=== PATIENT | male | born 1960 | race American Indian/Alaskan Native ===

== ENCOUNTER 2017-03-20 06:55 | Inpatient (IN) | payer MEDICARE ==
[2017-03-20] MEDS ORDERED: MORPHINE IV PRN (08:33)
--- NOTE | 2017-03-20 08:34 | Anesthesia Day of Surgery ---
Anesthesia Day of Surgery - Day of Surgery Patient Examined: Yes Patient H&P Reviewed: Yes Patient is NPO: Yes
--- NOTE | 2017-03-20 08:34 | Anesthesia Consultation ---
Anesthesia Consult and Med Hx Date of service: 03/20/17 - Airway Anesthetic Teeth Evaluation: Poor ROM Head & Neck: Adequate Mental/Hyoid Distance: Adequate Mallampati Class: Class II Intubation Access Assessment: Probably Good - Pulmonary Exam CTA: Yes - Cardiac Exam Cardiac Exam: RRR - Pre-Operative Health Status ASA Pre-Surgery Classification: ASA3 Proposed Anesthetic Plan: General - Pulmonary Hx Smoking: Yes (STOPPED 1999) Hx Asthma: (pt denies) Hx Respiratory Symptoms: (recent sore throat) SOB: Yes (SOB) Hx Sleep Apnea: Yes (DX SLEEP APNEA- IRREGULAR CPAP USE) - Cardiovascular System Hx Hypertension: Yes (X 10 YRS) - Central Nervous System Hx Back Pain: Yes (WITH LEG NUMBNESS/ PAIN) - Gastrointestinal Hx Gastroesophageal Reflux Disease: No - Endocrine Hx Insulin Dependent Diabetes: Yes - Other Systems Hx Alcohol Use: Yes (OCCAS WINE) Hx Substance Use: Yes (HX COCAINE/CRACK ABUSE-CLEAN SINCE 1987) Hx Cancer: No
[2017-03-20] MEDS ORDERED: PEPCID PO NR (09:00)
[2017-03-20] MEDS ORDERED: NEURONTIN PO NR (09:00)
[2017-03-20] MEDS ORDERED: NEO SYNEPHRINE/NS Syringe(OR USE) IV ONE (09:00)
[2017-03-20] MEDS ORDERED: NACL 0.9% 1000 ML 1,000 ML IV SCH (09:00)
[2017-03-20] MEDS ORDERED: VERSED IV NR (09:00)
[2017-03-20] MEDS ORDERED: D50W (25GM) Vial IV ONE (09:00)
[2017-03-20] MEDS ORDERED: MARCAINE 0.5% 30 ML INFILTRATI ONE (09:38)
[2017-03-20] MEDS ORDERED: ZEMURON IV ONE (09:41)
[2017-03-20] MEDS ORDERED: DIPRIVAN 10 MG/ML IV ONE (09:41)
[2017-03-20] MEDS ORDERED: DILAUDID ONE ×2 (09:41→11:56)
[2017-03-20] MEDS ORDERED: XYLOCAINE MPF 2% ONE (09:41)
[2017-03-20] MEDS ORDERED: ANCEF/STERILE WATER 2 GM/20 ML 2 GM/20 ML SYRINGE IV ONE (09:52)
[2017-03-20] MEDS ORDERED: ANCEF/STERILE WATER 2 GM/20 ML IV NR (10:00)
[2017-03-20] MEDS ORDERED: ePHEDrine SULFATE ONE (10:32)
[2017-03-20] MEDS ORDERED: NEOSTIGMINE ONE (10:42)
[2017-03-20] MEDS ORDERED: ZOFRAN ONE (10:42)
[2017-03-20] MEDS ORDERED: ROBINUL ONE (10:42)
[2017-03-20] MEDS ORDERED: DECADRON ONE (10:43)
[2017-03-20] MEDS ORDERED: NACL 0.9% 1000 ML 1,000 ML ONE (10:50)
[2017-03-20] MEDS ORDERED: MARCAINE 0.5% INFILTRATI ONE (11:07)
[2017-03-20] MEDS ORDERED: NACL 0.9% IR ONE (11:08)
[2017-03-20] MEDS: DILAUDID IV PRN ×4 (11:56→12:44)
--- NOTE | 2017-03-20 12:19 | Operative Report ---
PREOPERATIVE DIAGNOSIS: Ventral hernia. POSTOPERATIVE DIAGNOSIS: Ventral hernia. PROCEDURE: Exploratory laparotomy and ventral hernia repair with mesh. SURGEON: Mode Amin MD ANESTHESIA: General. ESTIMATED BLOOD LOSS: Minimal. No drains or complications. PROCEDURE IN DETAIL: The patient was taken to the operating room, prepped and draped in usual sterile fashion. The palpable ventral hernia had been previously outlined with a marking pencil. Incision was made down through the midline. Ventral hernia was confirmed as well as recurrent umbilical hernia. Omental adhesions were also noticed. Lysis of adhesions from the undersurface of the peritoneum was completed until the entire area was free of any adhesions. A Composix Parietex mesh was then placed in the abdomen covering the fascial defect. Tacks were used to tack the mesh to the peritoneal undersurface of the entire defect. The mesh was then carefully inspected and noted to be well placed with no evidence of any further defects noted. Midline was then closed over the mesh with #1 Nurolon in interrupted fashion. Fascia was then palpated and noted to be well closed. No other fascial defects or weaknesses noted. Area was irrigated copiously and dried. Checked for hemostasis and noted to be dry. The skin was then closed with rosemary. A 0.5% Marcaine was infiltrated over the area for postoperative pain relief. Fluffs and pressure dressings were applied. Abdominal binder will also be placed. The patient tolerated the procedure well and left OR in stable condition. JOB# [id number] FOZIA/YUMI
[2017-03-20] MEDS ORDERED: DILAUDID IV PRN (12:36)
[2017-03-20] MEDS: D5W/0.45% NACL/KCL 20 MEQ 20 MEQ/1,000 ML BAG IV SCH ×2 (16:00→21:42)
[2017-03-20] MEDS: ANCEF/NS 1 GM/50 ML 1 GM/50 ML BAG IV SCH (18:12)
[2017-03-20] MEDS: ZOFRAN IV PRN (18:24)
[2017-03-21] MEDS: ANCEF/NS 1 GM/50 ML 1 GM/50 ML BAG IV SCH (01:27)
[2017-03-21] MEDS: MORPHINE IV PRN (01:28)
[2017-03-21] MEDS: ZOFRAN IV PRN (01:28)
[2017-03-21 04:14] LABS: Basophils % (Auto) 0.2 % (0.0-1.8); Hemoglobin 18.3 gm/dl (11.8-15.2); Mean Corpuscular HGB Conc 32 % (32-34); Mean Corpuscular Hemoglobin 28 pg (28-32); Mean Corpuscular Volume 89 fl (84-94); Platelet Count 140 K/mm3 (140-440); Red Blood Count 6.53 M/mm3 (3.65-5.03); Red Cell Distribution Width 17.3 % (13.2-15.2); White Blood Count 9.1 K/mm3 (4.5-11.0)
[2017-03-21 04:24] LABS: Calcium 7.6 mg/dL (8.4-10.2)
[2017-03-21 05:55] LABS: Potassium 7.1 mmol/L (3.6-5.0)
[2017-03-21] MEDS ORDERED: CALCIUM CHLORIDE IV ONE (06:13)
[2017-03-21 07:39] LABS: Chloride 98.1 mmol/L (98-107)
[2017-03-21 07:43] LABS: Calcium 8.9 mg/dL (8.4-10.2)
[2017-03-21 07:46] LABS: Potassium 6.7 mmol/L (3.6-5.0)
[2017-03-21] MEDS: NOVOLOG SUB-Q SCH ×4 (08:22→22:26)
[2017-03-21] MEDS ORDERED: NACL 0.45% 1000 ML 1,000 ML IV SCH (09:00)
--- NOTE | 2017-03-21 10:19 | History and Physical Report ---
History of Present Illness Date of examination: 03/21/17 Date of admission: 03/20/17 11:12 Medications and Allergies Allergies Allergy/AdvReac Type Severity Reaction Status Date / Time No Known Allergies Allergy Verified 03/16/17 14:25 Home Medications Medication Instructions Recorded Confirmed Last Taken Type Aspirin [Aspirin BABY CHEW TAB] 81 mg PO QDAY 09/09/14 11/16/16 09/04/14 History Atorvastatin [Lipitor] 40 mg PO QHS 09/09/14 11/16/16 09/11/14 19:00 History Canagliflozin (Nf) [Invokana] 100 mg PO DAILY 09/09/14 11/16/16 09/10/14 09:00 History Esomeprazole Magnesium [NexIUM] 40 mg PO QDAY 09/09/14 11/16/16 Unknown History Fluticasone [Flonase] 1 spray NS PRN PRN 09/09/14 11/16/16 Unknown History Hydrochlorothiazide [Hctz] 25 mg PO QDAY 09/09/14 11/16/16 09/11/14 09:00 History Insulin Glargine,Hum.rec.anlog 40 unit SQ BID 09/09/14 11/16/16 09/11/14 16:00 History [Lantus Solostar] Insulin Lispro [HumaLOG] 20 unit SQ TID 09/09/14 11/16/16 Unknown History Lisinopril [Zestril] 40 mg PO QDAY 09/09/14 11/16/16 09/12/14 04:30 History Mometasone Furoate [Nasonex] 2 spray NS PRN PRN 09/09/14 11/16/16 Unknown History Montelukast [Singulair] 10 mg PO PRN PRN 09/09/14 11/16/16 Unknown History Polyethylene Glycol 3350 [Miralax 17 gm PO DAILY 09/09/14 11/16/16 Unknown History 3350] Pregabalin [Lyrica] 225 mg PO BID 09/09/14 11/16/16 09/11/14 19:00 History Vardenafil HCl [Levitra] 20 mg PO QDAY PRN 09/09/14 11/16/16 Unknown History Zolpidem [Ambien] 5 mg PO QHS PRN 09/09/14 11/16/16 Unknown History HYDROcodone/APAP 5-325 [[place] 1 - 2 each PO Q4HR PRN #30 tablet 09/12/14 Unknown Rx 5/325] Active Meds: Active Medications Hydromorphone HCl (Dilaudid) 0.25 mg IV Q3H PRN PRN Reason: Pain , Severe (7-10) Last Admin: 03/20/17 19:09 Dose: 0.25 mg Sodium Chloride (Nacl 0.45% 1000 Ml) 1,000 mls @ 125 mls/hr IV DIRECT BETHANY Last Admin: 03/21/17 09:39 Dose: 125 mls/hr Insulin Aspart (Novolog) 0 units SUB-Q ACHS BETHANY PRN Reason: Protocol Morphine Sulfate (Morphine) 4 mg IV Q3H PRN PRN Reason: Pain , Severe (7-10) Last Admin: 03/21/17 01:28 Dose: 4 mg Ondansetron HCl (Zofran) 4 mg IV Q4H PRN PRN Reason: N/V unrelieved by Christine Last Admin: 03/21/17 01:28 Dose: 4 mg Exam - Constitutional Vitals: Temp Pulse Resp BP Pulse Ox 99.2 F 103 H 93 H 120/82 97 03/21/17 08:00 03/21/17 08:00 03/21/17 08:00 03/21/17 08:00 03/21/17 04:30 Results - Labs CBC & Chem 7: 03/21/17 03:34 03/21/17 07:07 Labs: Laboratory Last Values WBC 9.1 K/mm3 (4.5-11.0) 03/21/17 03:34 RBC 6.53 M/mm3 (3.65-5.03) H 03/21/17 03:34 Hgb 18.3 gm/dl (11.8-15.2) H 03/21/17 03:34 Hct 58.0 % (35.5-45.6) H 03/21/17 03:34 MCV 89 fl (84-94) 03/21/17 03:34 MCH 28 pg (28-32) 03/21/17 03:34 MCHC 32 % (32-34) 03/21/17 03:34 RDW 17.3 % (13.2-15.2) H 03/21/17 03:34 Plt Count 140 K/mm3 (140-440) 03/21/17 03:34 Lymph % (Auto) 5.8 % (13.4-35.0) L 03/21/17 03:34 Tucker % (Auto) 11.1 % (0.0-7.3) H 03/21/17 03:34 Eos % (Auto) 0.0 % (0.0-4.3) 03/21/17 03:34 Baso % (Auto) 0.2 % (0.0-1.8) 03/21/17 03:34 Lymph # 0.5 K/mm3 (1.2-5.4) L 03/21/17 03:34 Tucker # 1.0 K/mm3 (0.0-0.8) H 03/21/17 03:34 Eos # 0.0 K/mm3 (0.0-0.4) 03/21/17 03:34 Baso # 0.0 K/mm3 (0.0-0.1) 03/21/17 03:34 Seg Neutrophils % 82.9 % (40.0-70.0) H 03/21/17 03:34 Seg Neutrophils # 7.5 K/mm3 (1.8-7.7) 03/21/17 03:34 Sodium 135 mmol/L (137-145) L 03/21/17 07:07 Potassium 6.7 mmol/L (3.6-5.0) H* 03/21/17 07:07 Chloride 98.1 mmol/L (98-107) 03/21/17 07:07 Carbon Dioxide 22 mmol/L (22-30) 03/21/17 07:07 Anion Gap 22 mmol/L 03/21/17 07:07 BUN 53 mg/dL (9-20) H 03/21/17 07:07 Creatinine 3.1 mg/dL (0.8-1.5) H 03/21/17 07:07 Estimated GFR 25 ml/min 03/21/17 07:07 BUN/Creatinine Ratio 17 % 03/21/17 07:07 Glucose 378 mg/dL (75-100) H 03/21/17 07:07 POC Glucose 328 (70-105) H 03/21/17 06:28 Calcium 8.9 mg/dL (8.4-10.2) D 03/21/17 07:07
[2017-03-21] MEDS ORDERED: D50W (25GM) Syringe IV PRN (10:20)
--- NOTE | 2017-03-21 10:28 | Consultation ---
<GLEN WAGNERANDREY - Last Filed: 03/21/17 11:26> History of Present Illness - Reason for Consult Consult date: 03/21/17 acute on chronic renal failure and diabetes mellitus Requesting physician: JOSUE AMIN - History of Present Illness Patient is a 56 years old male with past medical history of hypertension, diabetes mellitus, chronic renal failure, hyperlipidemia , who was consulted form general surgery to us for medical management of hypertension and diabetes mellitus. Patient has had hernia repair; this procedure occurred on 03/20/2017. Patient tolerated the procedure well and postoperatively, she is stable. Patient denies fever, chills chest pain, headache. Patient rates surgical area pain and rates her pain 4/10 at present time. Past History Past Medical History: diabetes, hypertension, hyperlipidemia, other (chronic renal failure) Past Surgical History: Other (hernia repair) Social history: denies: smoking, alcohol abuse Family history: diabetes, hypertension Medications and Allergies Allergies Allergy/AdvReac Type Severity Reaction Status Date / Time No Known Allergies Allergy Verified 03/16/17 14:25 Home Medications Medication Instructions Recorded Confirmed Last Taken Type Aspirin [Aspirin BABY CHEW TAB] 81 mg PO QDAY 09/09/14 03/21/17 09/04/14 History Atorvastatin [Lipitor] 40 mg PO QHS 09/09/14 03/21/17 09/11/14 19:00 History Canagliflozin (Nf) [Invokana] 100 mg PO DAILY 09/09/14 03/21/17 09/10/14 09:00 History Esomeprazole Magnesium [NexIUM] 40 mg PO QDAY 09/09/14 03/21/17 Unknown History Fluticasone [Flonase] 1 spray NS PRN PRN 09/09/14 03/21/17 Unknown History Hydrochlorothiazide [Hctz] 25 mg PO QDAY 09/09/14 03/21/17 09/11/14 09:00 History Insulin Glargine,Hum.rec.anlog 40 unit SQ BID 09/09/14 03/21/17 09/11/14 16:00 History [Lantus Solostar] Insulin Lispro [HumaLOG] 20 unit SQ TID PRN 09/09/14 03/21/17 Unknown History Lisinopril [Zestril] 40 mg PO QDAY 09/09/14 03/21/1709/12/15 04:30 History Mometasone Furoate [Nasonex] 2 spray NS PRN PRN 09/09/14 03/21/17 Unknown History Montelukast [Singulair] 10 mg PO PRN PRN 09/09/14 03/21/17 Unknown History Polyethylene Glycol 3350 [Miralax 17 gm PO DAILY PRN 09/09/14 03/21/17 Unknown History 3350] Pregabalin [Lyrica] 225 mg PO BID 09/09/14 03/21/17 09/11/14 19:00 History Vardenafil HCl [Levitra] 20 mg PO QDAY PRN 09/09/14 03/21/17 Unknown History Zolpidem [Ambien] 5 mg PO QHS PRN 09/09/14 03/21/17 Unknown History HYDROcodone/APAP 5-325 [[place] 1 - 2 each PO Q4HR PRN #30 tablet 09/12/14 Unknown Rx 5/325] Active Meds: Active Medications Dextrose (D50w (25gm) Syringe) 50 ml IV PRN PRN PRN Reason: Hypoglycemia Hydromorphone HCl (Dilaudid) 0.25 mg IV Q3H PRN PRN Reason: Pain , Severe (7-10) Last Admin: 03/20/17 19:09 Dose: 0.25 mg Sodium Chloride (Nacl 0.45% 1000 Ml) 1,000 mls @ 125 mls/hr IV DIRECT BETHANY Last Admin: 03/21/17 09:39 Dose: 125 mls/hr Calcium Gluconate 1,000 mg/ (Sodium Chloride) 110 mls @ 660 mls/hr IV ONCE STA Stop: 03/21/17 10:34 Insulin Aspart (Novolog) 0 units SUB-Q ACHS BETHANY PRN Reason: Protocol Last Admin: 03/21/17 08:22 Dose: Not Given Insulin Human Regular (Novolin R) 10 units IV ONCE ONE Stop: 03/21/17 10:31 Morphine Sulfate (Morphine) 4 mg IV Q3H PRN PRN Reason: Pain , Severe (7-10) Last Admin: 03/21/17 01:28 Dose: 4 mg Ondansetron HCl (Zofran) 4 mg IV Q4H PRN PRN Reason: N/V unrelieved by Reglan Last Admin: 03/21/17 01:28 Dose: 4 mg Review of Systems Constitutional: no weight loss, no weight gain, no sweats Ears, nose, mouth and throat: no decreased hearing, no nose pain, no nasal congestion Cardiovascular: no palpitations, no rapid/irregular heart beat, no edema, no syncope Respiratory: no excessive sputum, no hemoptysis, no shortness of breath Gastrointestinal: no vomiting, no diarrhea, no constipation Genitourinary Male: no discharge, no urinary frequency, no urinary hesitancy Rectal: no incontinence, no bleeding Musculoskeletal: no shooting arm pain, no arm numbness/tingling, no low back pain Integumentary: no wounds, no jaundice, no boils Neurological: no weakness, no parathesias, no numbness, no tingling, no syncope Psychiatric: no hypersomnia, no change in appetite, no change in libido Endocrine: no polyuria, no nocturia, no excessive sweating Hematologic/Lymphatic: no easy bruising, no easy bleeding Allergic/Immunologic: no urticaria, no allergic rhinitis Exam - Constitutional Vitals: Temp Pulse Resp BP Pulse Ox 99.2 F 103 H 93 H 120/82 97 03/21/17 08:00 03/21/17 08:00 03/21/17 08:00 03/21/17 08:00 03/21/17 04:30 General appearance: Present: no acute distress - EENT Eyes: Present: PERRL ENT: hearing intact - Neck Neck: Present: supple - Respiratory Respiratory effort: normal Respiratory: bilateral: CTA - Cardiovascular Rhythm: regular Heart Sounds: Present: S1 & S2 - Abdominal General gastrointestinal: Present: soft, hernia, other (Abd surgery with guaze dressing ) Male genitourinary: Present: deferred - Rectal Rectal Exam: deferred - Integumentary Integumentary: Present: clear, warm, dry - Musculoskeletal Musculoskeletal: strength equal bilaterally - Psychiatric Psychiatric: appropriate mood/affect - Neurologic Neurologic: moves all extremities - Allied Health Allied health notes reviewed: nursing Results - Labs CBC & Chem 7: 03/21/17 03:34 03/21/17 07:07 Labs: Abnormal lab results 03/20/17 03/20/17 03/21/17 Range/Units 11:48 23:51 03:34 RBC 6.53 H (3.65-5.03) M/mm3 Hgb 18.3 H (11.8-15.2) gm/dl Hct 58.0 H (35.5-45.6) % RDW 17.3 H (13.2-15.2) % Lymph % (Auto) 5.8 L (13.4-35.0) % [place] % (Auto) 11.1 H (0.0-7.3) % Lymph # 0.5 L (1.2-5.4) K/mm3 [place] # 1.0 H (0.0-0.8) K/mm3 Seg Neutrophils % 82.9 H (40.0-70.0) % Sodium (137-145) mmol/L Potassium (3.6-5.0) mmol/L Chloride (98-107) mmol/L Carbon Dioxide (22-30) mmol/L BUN (9-20) mg/dL Creatinine (0.8-1.5) mg/dL Glucose (75-100) mg/dL POC Glucose 117 H 320 H (70-105) Calcium (8.4-10.2) mg/dL 03/21/17 03/21/17 03/21/17 Range/Units 03:34 06:28 07:07 RBC (3.65-5.03) M/mm3 Hgb (11.8-15.2) gm/dl Hct (35.5-45.6) % RDW (13.2-15.2) % Lymph % (Auto) (13.4-35.0) % [place] % (Auto) (0.0-7.3) % Lymph # (1.2-5.4) K/mm3 [place] # (0.0-0.8) K/mm3 Seg Neutrophils % (40.0-70.0) % Sodium 130 L 135 L (137-145) mmol/L Potassium 7.1 H* 6.7 H* (3.6-5.0) mmol/L Chloride 96.0 L (98-107) mmol/L Carbon Dioxide 19 L (22-30) mmol/L BUN 49 H 53 H (9-20) mg/dL Creatinine 3.0 H 3.1 H (0.8-1.5) mg/dL Glucose 422 H 378 H (75-100) mg/dL POC Glucose 328 H (70-105) Calcium 7.6 L (8.4-10.2) mg/dL Assessment and Plan Patient is a 56 years old male with past medical history of hypertension, diabetes mellitus, chronic renal failure, hyperlipidemia , who was consulted form general surgery to us for medical management of hypertension and diabetes mellitus. Patient has had hernia repair; this procedure occurred on 03/20/2017. Patient tolerated the procedure well and postoperatively, she is stable. Patient denies fever, chills chest pain, headache. Patient rates surgical area pain and rates her pain 4/10 at present time. Acute on chronic renal failure IV fluid hydration Renal US Nephrology consulted Hyperkalemia Secondary to renal failure Transfer to Telemetry Hyperkalemia cocktail given Repeat BMP Nephrology consulted Closely monitor electrolytes Hypertensive urgency Continue home antihypertensive medications Closely monitor blood pressure Diabetes mellitus Accu-Chek before meals and after Sliding-scale insulin/NovoLog ADA consistent carbohydrate/cardiac diet Hypertension Continue on home antihypertensive medication IV hydralazine for SBP >160 Closely monitor blood pressure S/P Left hernia repair Managed by hourly manager Hyponatermia Started IV fluid hydration Closely monitor electrolytes DVT prophylaxis Heparin <CHANA LOAIZA - Last Filed: 03/23/17 09:03> Medications and Allergies Active Meds: Active Medications Acetaminophen (Tylenol) 650 mg PO Q4H PRN PRN Reason: Pain, Mild (1-3) Last Admin: 03/21/17 22:27 Dose: 650 mg Atorvastatin Calcium (Lipitor) 40 mg PO QHS [facility] Last Admin: 03/22/17 21:15 Dose: 40 mg Dextrose (D50w (25gm) Vial) 25 gm IV PRN PRN PRN Reason: Hypoglycemia Fluticasone Propionate (Flonase) 100 mcg NS QDAY PRN PRN Reason: Allergy Symptoms Hydrochlorothiazide (Hctz) 25 mg PO QDAY [facility] Last Admin: 03/22/17 11:20 Dose: 25 mg Hydromorphone HCl (Dilaudid) 0.25 mg IV Q3H PRN PRN Reason: Pain , Severe (7-10) Last Admin: 03/20/17 19:09 Dose: 0.25 mg Sodium Chloride (Nacl 0.9% 1000 Ml) 1,000 mls @ 125 mls/hr IV DIRECT [facility] Last Admin: 03/23/17 03:10 Dose: 125 mls/hr Insulin Aspart (Novolog) 0 units SUB-Q ACHS [facility] PRN Reason: Protocol Last Admin: 03/22/17 21:16 Dose: Not Given Insulin Detemir (Levemir) 40 units SUB-Q BID [facility] Last Admin: 03/22/17 21:16 Dose: Not Given Morphine Sulfate (Morphine) 4 mg IV Q3H PRN PRN Reason: Pain , Severe (7-10) Ondansetron HCl (Zofran) 4 mg IV Q4H PRN PRN Reason: N/V unrelieved by Christine Last Admin: 03/22/17 05:29 Dose: 4 mg Pantoprazole Sodium (Protonix) 40 mg PO DAILY [facility] Last Admin: 03/22/17 11:20 Dose: 40 mg Pregabalin (Lyrica) 225 mg PO BID [facility] Last Admin: 03/22/17 21:15 Dose: 225 mg Zolpidem Tartrate (Ambien) 5 mg PO QHS PRN PRN Reason: Sleep Exam - Constitutional Vitals: Temp Pulse Resp BP Pulse Ox 99.1 F 110 H 20 111/81 93 03/23/17 00:03 03/23/17 00:03 03/23/17 00:03 03/23/17 00:03 03/23/17 00:03 Results - Labs CBC & Chem 7: 03/23/17 06:28 03/23/17 06:28 Labs: Abnormal lab results 03/21/17 03/22/17 03/22/17 Range/Units 13:59 09:47 09:47 RBC 6.29 H (3.65-5.03) M/mm3 Hgb 17.4 H (11.8-15.2) gm/dl Hct 55.8 H (35.5-45.6) % MCHC 31 L (32-34) % RDW 17.1 H (13.2-15.2) % Plt Count 132 L (140-440) K/mm3 Sodium (137-145) mmol/L Potassium 6.4 H* D (3.6-5.0) mmol/L Chloride (98-107) mmol/L BUN 43 H (9-20) mg/dL Creatinine 1.7 H (0.8-1.5) mg/dL Glucose 184 H (75-100) mg/dL POC Glucose 247 H (70-105) 03/22/17 03/22/17 03/22/17 Range/Units 11:09 15:50 18:00 RBC (3.65-5.03) M/mm3 Hgb (11.8-15.2) gm/dl Hct (35.5-45.6) % MCHC (32-34) % RDW (13.2-15.2) % Plt Count (140-440) K/mm3 Sodium 146 H (137-145) mmol/L Potassium 5.2 H (3.6-5.0) mmol/L Chloride 107.6 H (98-107) mmol/L BUN 43 H (9-20) mg/dL Creatinine 1.9 H (0.8-1.5) mg/dL Glucose 143 H (75-100) mg/dL POC Glucose 175 H 108 H (70-105) 03/23/17 03/23/17 Range/Units 06:28 06:28 RBC 6.20 H (3.65-5.03) M/mm3 Hgb 17.7 H (11.8-15.2) gm/dl Hct 54.8 H (35.5-45.6) % MCHC (32-34) % RDW 17.2 H (13.2-15.2) % Plt Count 127 L (140-440) K/mm3 Sodium 146 H (137-145) mmol/L Potassium (3.6-5.0) mmol/L Chloride (98-107) mmol/L BUN 37 H (9-20) mg/dL Creatinine 1.6 H (0.8-1.5) mg/dL Glucose 118 H (75-100) mg/dL POC Glucose (70-105) Assessment and Plan I saw and evaluated the patient. I agree with the findings and the plan of care as documented in the Nurse Practitioner's~note, with the following corrections and additions. Patient post hernia repair surgery. Has acute on CKD, severe hyperkalemia. Give Insulin, 5% Dextrose, kayexalate rectally, Calcium Gluconate, Albuterol neb. Transfer to telemetry I discussed with Dr. Amin, Surgeon and Dr. Ruff, Nephrology.
[2017-03-21] MEDS ORDERED: AMBIEN PO PRN (10:45)
[2017-03-21] MEDS ORDERED: FLONASE NS PRN (10:45)
[2017-03-21] MEDS ORDERED: MIRALAX 3350 PO PRN (10:45)
[2017-03-21] MEDS ORDERED: INSULIN LISPRO 20 UNIT SQ PRN (10:45)
[2017-03-21] MEDS ORDERED: SINGULAIR PO PRN (10:45)
[2017-03-21] MEDS ORDERED: VARDENAFIL HCL 20 MG PO PRN (10:45)
[2017-03-21] MEDS ORDERED: NON-FORMULARY (Mometasone Furoate [Nasonex] 2 SPRAY) NS PRN (10:45)
[2017-03-21] MEDS ORDERED: CALCIUM GLUCONATE 1,000 MG in NACL 0.9% 100 ML IV ONE (11:00)
[2017-03-21] MEDS ORDERED: LASIX IV ONE (11:30)
[2017-03-21] MEDS ORDERED: KIONEX PR NR ×2 (11:30→15:00)
[2017-03-21] MEDS ORDERED: PROVENTIL IH ONE (11:30)
[2017-03-21] MEDS ORDERED: NACL 0.9% 1000 ML 1,000 ML IV SCH (12:00)
--- NOTE | 2017-03-21 13:08 | Consultation ---
History of Present Illness - Reason for Consult Consult date: 03/21/17 acute renal failure, chronic renal failure, hyperkalemia - History of Present Illness Mr Hough is a 56 y/o M with a PMH of DM, HTN, HLD, CKD from DM/HTN who has been admitted to the [facility] for hernia repair which was done yesterday 03/20/17. Pt says he has seen a calender inspector in the past >1 year ago but has not seen recently as he currently lives far away from the clinic. He denies SHOB, CP, N/V , belly pain, diarrhea. Pt in Nov had a Cr of 1.7. Pt was getting D5 1/ 2 NS with 20 meq of KCL yesterday at 125 mls/hr. He had labs checked this am and his K was found to be 7.1. He has been on lisinopril inpatient. His repeat K was 6.7. Pt is making urine. ROS: As in HPI otherwise 12 point review of systems -ve Past History Past Medical History: diabetes, hypertension, hyperlipidemia, other (chronic renal failure) Past Surgical History: Other (hernia repair) Social history: denies: smoking, alcohol abuse Family history: diabetes, hypertension Medications and Allergies Allergies Allergy/AdvReac Type Severity Reaction Status Date / Time No Known Allergies Allergy Verified 03/16/17 14:25 Home Medications Medication Instructions Recorded Confirmed Last Taken Type Aspirin [Aspirin BABY CHEW TAB] 81 mg PO QDAY 09/09/14 03/21/17 09/04/14 History Atorvastatin [Lipitor] 40 mg PO QHS 09/09/14 03/21/17 09/11/14 19:00 History Canagliflozin (Nf) [Invokana] 100 mg PO DAILY 09/09/14 03/21/17 09/10/14 09:00 History Esomeprazole Magnesium [NexIUM] 40 mg PO QDAY 09/09/14 03/21/17 Unknown History Fluticasone [Flonase] 1 spray NS PRN PRN 09/09/14 03/21/17 Unknown History Hydrochlorothiazide [Hctz] 25 mg PO QDAY 09/09/14 03/21/17 09/11/14 09:00 History Insulin Glargine,Hum.rec.anlog 40 unit SQ BID 09/09/14 03/21/17 09/11/14 16:00 History [Lantus Solostar] Insulin Lispro [HumaLOG] 20 unit SQ TID PRN 09/09/14 03/21/17 Unknown History Lisinopril [Zestril] 40 mg PO QDAY 09/09/14 03/21/17 09/12/14 04:30 History Mometasone Furoate [Nasonex] 2 spray NS PRN PRN 09/09/14 03/21/17 Unknown History Montelukast [Singulair] 10 mg PO PRN PRN 09/09/14 03/21/17 Unknown History Polyethylene Glycol 3350 [Miralax 17 gm PO DAILY PRN 09/09/14 03/21/17 Unknown History 3350] Pregabalin [Lyrica] 225 mg PO BID 09/09/14 03/21/17 09/11/14 19:00 History Vardenafil HCl [Levitra] 20 mg PO QDAY PRN 09/09/14 03/21/17 Unknown History Zolpidem [Ambien] 5 mg PO QHS PRN 09/09/14 03/21/17 Unknown History HYDROcodone/APAP 5-325 [[place] 1 - 2 each PO Q4HR PRN #30 tablet 09/12/14 Unknown Rx 5/325] Active Meds: Active Medications Atorvastatin Calcium (Lipitor) 40 mg PO QHS BETHANY Dextrose (D50w (25gm) Vial) 25 gm IV PRN PRN PRN Reason: Hypoglycemia Fluticasone Propionate (Flonase) 100 mcg NS QDAY PRN PRN Reason: Allergy Symptoms Hydrochlorothiazide (Hctz) 25 mg PO QDAY BETHANY Hydromorphone HCl (Dilaudid) 0.25 mg IV Q3H PRN PRN Reason: Pain , Severe (7-10) Last Admin: 03/20/17 19:09 Dose: 0.25 mg Sodium Chloride (Nacl 0.45% 1000 Ml) 1,000 mls @ 125 mls/hr IV DIRECT BETHANY Last Admin: 03/21/17 09:39 Dose: 125 mls/hr Sodium Chloride (Nacl 0.9% 1000 Ml) 1,000 mls @ 75 mls/hr IV DIRECT BETHANY Insulin Aspart (Novolog) 0 units SUB-Q ACHS BETHANY PRN Reason: Protocol Last Admin: 03/21/17 11:41 Dose: Not Given Insulin Detemir (Levemir) 40 units SUB-Q BID BETHANY Miscellaneous Medication (Vardenafil Hcl [Levitra]) 20 mg PO QDAY PRN PRN Reason: Erectile Dysfunction Montelukast Sodium (Singulair) 10 mg PO QDAY PRN PRN Reason: Allergy Symptoms Morphine Sulfate (Morphine) 4 mg IV Q3H PRN PRN Reason: Pain , Severe (7-10) Last Admin: 03/21/17 01:28 Dose: 4 mg Ondansetron HCl (Zofran) 4 mg IV Q4H PRN PRN Reason: N/V unrelieved by Reglan Last Admin: 03/21/17 01:28 Dose: 4 mg Pantoprazole Sodium (Protonix) 40 mg PO DAILY BETHANY Polyethylene Glycol (Miralax 3350) 17 gm PO DAILY PRN PRN Reason: Bowel Movement Pregabalin (Lyrica) 225 mg PO BID BETHANY Sodium Polystyrene Sulfonate (Kionex) 60 gm MD ONCE NR Stop: 03/21/17 13:30 Zolpidem Tartrate (Ambien) 5 mg PO QHS PRN PRN Reason: Sleep Exam - Vital Signs Vital signs: Vital Signs Temp Pulse Resp BP Pulse Ox 98.0 F 85 18 115/74 95 03/20/17 08:39 03/20/17 08:39 03/20/17 08:39 03/20/17 08:39 03/20/17 08:39 - Physical Exam Narrative exam: GE: AAOX3 HEENT: PERRLA Neck: Supple Chest: CTAB CVS: RRR Abd: BS+ Ext: No cce Psyche: Appropriate mood Results - Lab Results 03/21/17 03:34 03/21/17 07:07 Most recent lab results Calcium 8.9 mg/dL (8.4-10.2) D 03/21/17 07:07 Assessment and Plan Hyperkalemia: -IVFs with K stopped. Currently on 1/2 NS. -Albuterol, Insulin, D50, Ca gluconate, lasix, kayxelate ordered. Will recheck K. -Low K diet when able to eat -Hold lisinopril for now Acute Renal failure possible due to ATN/pre renal vs CKD progression: Chronic kidney disease stage 3-4: -No recent BL Cr available, last Cr in Nov 2016 was 1.7. Could have ARF vs CKD progression -Likely has CKD from DM/HTN -Hold lisinopril for now -Change 1/2 NS to NS at 125 mls/hr since also has low Na -Renally dose all meds and avoid nephrotoxic meds -Check Urine studies, Renal US s/p Hernia repair: -GS on board, per them Diabetes mellitus type 2 on insulin: -On ISS -Per primary Essential Hypertension: -Avoid Gene ing/ARB for now -Titrate home med to keep SBP <130 Hyperlipidemia, chronic: -Statin -Target LDL <70 Plan d/w bedside RN. Pt says he would like to f/u with [facility] on discharge since it is closer to his home. With this note, i want to thank Dr Holm and Dr Amin for allowing me to participate in the care of Mr Graf. I will continue to follow him quite closely with you. Thank you for the consult. Stanislav Ruff MD Nephrology, Hypertension, Dialysis, Transplantation Phone no: [phone]
--- NOTE | 2017-03-21 13:21 | XRay Report ---
AP CHEST :03/21/17 CLINICAL: Volume overload. COMPARISON:None. FINDINGS: Cardiomegaly with a left ventricular contour. Central vascular congestion. A band of left lower lobe subsegmental atelectasis an additional streaky opacities in the left lower lobe. No pleural effusion. The bones and soft tissues are normal. IMPRESSION: Mild CHF and no pulmonary edema. Left lower lobe atelectasis versus airspace disease.
--- NOTE | 2017-03-21 13:52 | Progress Note ---
Assessment and Plan Pt status quo. feeling well. neg flatus Abd soft. neg BS ileus elevated K and BS surgically stable Rx above ambulate as terri probable cl liq in am Selected Entries 03/21/17 03/21/17 08:00 11:30 Temperature 99.2 F Pulse Rate 95 H Blood Pressure 144/94 [Right] Laboratory Tests 03/21/17 03/21/17 03:34 03:34 WBC 9.1 Hgb 18.3 H Hct 58.0 H Potassium 7.1 H* Laboratory Tests 03/21/17 03/21/17 03:34 06:28 Sodium 130 L POC Glucose 328 H Objective Vital Signs - 12hr 03/21/17 03/21/17 03/21/17 04:30 08:00 11:30 Temperature 98.7 F 99.2 F Pulse Rate 97 H 103 H 95 H Respiratory 20 93 H 20 Rate Blood Pressure 103/66 120/82 144/94 [Right] O2 Sat by Pulse 97 94 Oximetry - Labs 03/21/17 03:34 03/21/17 07:07 Diabetes panel 03/21/17 03/21/17 Range/Units 03:34 07:07 Sodium 130 L 135 L (137-145) mmol/L Potassium 7.1 H* 6.7 H* (3.6-5.0) mmol/L Chloride 96.0 L 98.1 (98-107) mmol/L Carbon Dioxide 19 L 22 (22-30) mmol/L BUN 49 H 53 H (9-20) mg/dL Creatinine 3.0 H 3.1 H (0.8-1.5) mg/dL Glucose 422 H 378 H (75-100) mg/dL Calcium 7.6 L 8.9 D (8.4-10.2) mg/dL Calcium panel 03/21/17 03/21/17 Range/Units 03:34 07:07 Calcium 7.6 L 8.9 D (8.4-10.2) mg/dL Pituitary panel 03/21/17 03/21/17 Range/Units 03:34 07:07 Sodium 130 L 135 L (137-145) mmol/L Potassium 7.1 H* 6.7 H* (3.6-5.0) mmol/L Chloride 96.0 L 98.1 (98-107) mmol/L Carbon Dioxide 19 L 22 (22-30) mmol/L BUN 49 H 53 H (9-20) mg/dL Creatinine 3.0 H 3.1 H (0.8-1.5) mg/dL Glucose 422 H 378 H (75-100) mg/dL Calcium 7.6 L 8.9 D (8.4-10.2) mg/dL Adrenal panel 03/21/17 03/21/17 Range/Units 03:34 07:07 Sodium 130 L 135 L (137-145) mmol/L Potassium 7.1 H* 6.7 H* (3.6-5.0) mmol/L Chloride 96.0 L 98.1 (98-107) mmol/L Carbon Dioxide 19 L 22 (22-30) mmol/L BUN 49 H 53 H (9-20) mg/dL Creatinine 3.0 H 3.1 H (0.8-1.5) mg/dL Glucose 422 H 378 H (75-100) mg/dL Calcium 7.6 L 8.9 D (8.4-10.2) mg/dL
[2017-03-21] MEDS: NACL 0.9% 1000 ML 1,000 ML IV SCH ×2 (15:23→23:21)
[2017-03-21 19:05] LABS: Calcium 9.1 mg/dL (8.4-10.2); Chloride 99.1 mmol/L (98-107); Potassium 5.1 mmol/L (3.6-5.0)
[2017-03-21 20:27] LABS: Bacteria,Urine 1+ /HPF (Negative); Bilirubin,Urine NEG (Negative); Blood,Urine SM (Negative); Ketones,Urine NEG (Negative); Leukocyte Esterase,Urine NEG (Negative); Mucus,Urine FEW /HPF; Nitrite,Urine NEG (Negative); Protein,Urine <15 mg/dL mg/dL (Negative); RBC,Urine < 1.0 /HPF (0.0-6.0); Urobilinogen,Urine < 2.0 mg/dL (<2.0)
[2017-03-21] MEDS: LYRICA PO SCH (21:41)
[2017-03-21] MEDS ORDERED: NON-FORMULARY (Insulin Glargine,Hum.Rec.Anlog [Lantus Solostar] 40 UNIT) SQ SCH (22:00)
[2017-03-21] MEDS ORDERED: PREGABALIN 225 MG PO SCH (22:00)
[2017-03-21] MEDS: TYLENOL PO PRN (22:27)
[2017-03-22] MEDS: LEVEMIR SUB-Q SCH ×3 (00:13→21:16)
[2017-03-22] MEDS: MORPHINE IV PRN (05:29)
[2017-03-22] MEDS: ZOFRAN IV PRN (05:29)
[2017-03-22] MEDS: NACL 0.9% 1000 ML 1,000 ML IV SCH ×2 (07:25→17:50)
--- NOTE | 2017-03-22 09:38 | Ultrasound Report ---
ULTRASOUND RENAL BILATERAL HISTORY: Acute renal failure. TECHNIQUE: transabdominal ultrasound with color Doppler interrogation. FINDINGS: The right kidney measures 10.8cm. Right renal cortex: 1.8cm. The left kidney measures 10.9cm. Left renal cortex: 2.1cm. The kidneys are normal size, contour and position. There is increased renal parenchymal echotexture bilaterally. Corticomedullary differentiation is preserved. No evidence for cystic disease, mass, hydronephrosis or perinephric fluid. The views of the bladder and the region of the ureters appear normal. IMPRESSION: Slightly echogenic kidneys consistent with nonspecific renal parenchymal disease. No obstructive uropathy.
[2017-03-22] MEDS ORDERED: NON-FORMULARY (Esomeprazole Magnesium [Nexium] 40 MG) PO SCH (10:00)
[2017-03-22] MEDS ORDERED: ZESTRIL PO SCH (10:00)
[2017-03-22 10:13] LABS: Mean Corpuscular HGB Conc 31 % (32-34); Mean Corpuscular Hemoglobin 28 pg (28-32); Mean Corpuscular Volume 89 fl (84-94); Platelet Count 132 K/mm3 (140-440); Red Blood Count 6.29 M/mm3 (3.65-5.03); Red Cell Distribution Width 17.1 % (13.2-15.2); White Blood Count 7.9 K/mm3 (4.5-11.0)
[2017-03-22 10:15] LABS: Hematocrit 55.8 % (35.5-45.6); Hemoglobin 17.4 gm/dl (11.8-15.2)
--- NOTE | 2017-03-22 10:17 | Progress Note ---
Assessment and Plan Hyperkalemia: -K when down yesterday with medical management now went back up again. -Albuterol, Insulin, D50, Lasix, Kayxelate, Ca gluconate ordered. Recheck K later. -Low K diet when able to eat -Holding lisinopril for now Acute Renal failure possible due to ATN/pre renal: Chronic kidney disease stage 3-4: -No recent BL Cr available, last Cr in Nov 2016 was 1.7. Likely pre renal ARF -Likely has CKD from DM/HTN -Holding lisinopril for now -Cr trending down, continue NS at 125 cc/hr. -Renally dose all meds and avoid nephrotoxic meds -Renal US -ve for hydronephrosis, shows chronicity. s/p Hernia repair: -GS on board, per them Diabetes mellitus type 2 on insulin: -On ISS -Per primary Essential Hypertension: -Avoid Gene ing/ARB for now -Titrate home med to keep SBP <130 Hyperlipidemia, chronic: -Statin -Target LDL <70 Plan d/w bedside RN. Pt says he would like to f/u with [facility] on discharge since it is closer to his home. Stanislav Ruff MD Nephrology, Hypertension, Dialysis, Transplantation Phone no: [phone] Subjective Date of service: 03/22/17 Interval history: Denies CP/SHOB. Making urine. Objective - Exam Narrative Exam: GE: AAOX3 HEENT: PERRLA Neck: Supple Chest: CTAB CVS: RRR Abd: BS+ Ext: No cce Psyche: Appropriate mood - Vital Signs Vital signs: Vital Signs - 12hr 03/21/17 03/21/17 03/22/17 23:56 23:57 05:03 Temperature 97.9 F 98.8 F Pulse Rate 104 H 101 H 101 H Respiratory 24 22 20 Rate Blood Pressure 115/86 143/95 O2 Sat by Pulse 95 93 94 Oximetry 03/22/17 08:53 Temperature Pulse Rate 105 H Respiratory Rate Blood Pressure O2 Sat by Pulse Oximetry - Lab 03/22/17 09:47 03/22/17 09:47 Most recent lab results Calcium 9.1 mg/dL (8.4-10.2) 03/21/17 18:25 Urine Creatinine 62.3 mg/dL (0.1-20.0) H 03/21/17 19:30 Urine Sodium 91 mmol/L 03/21/17 19:30
[2017-03-22] MEDS ORDERED: KIONEX PO ONE ×2 (10:30→11:43)
[2017-03-22 10:33] LABS: Calcium 8.4 mg/dL (8.4-10.2); Chloride 105.5 mmol/L (98-107)
[2017-03-22 10:40] LABS: Potassium 6.4 mmol/L (3.6-5.0)
[2017-03-22] MEDS: PROTONIX PO SCH (11:20)
[2017-03-22] MEDS: HCTZ PO SCH (11:20)
[2017-03-22] MEDS: LYRICA PO SCH ×2 (11:20→21:15)
[2017-03-22] MEDS ORDERED: D50W (25GM) Syringe IV ONE (11:22)
--- NOTE | 2017-03-22 11:23 | Progress Note ---
Assessment and Plan Assessment and plan: Patient is a 56 years old male with past medical history of hypertension, diabetes mellitus, chronic renal failure, hyperlipidemia , who was consulted form general surgery to us for medical management of hypertension and diabetes mellitus. Patient has had hernia repair; this procedure occurred on 03/20/2017. Acute on chronic kidney disease. Improving Cr 1.7 today from 3.0 on admission He has not been to [facility] in more than 1 year. Baseline unknown Renal US Nephrology following and I discussed with Dr. Ruff Hyperkalemia Secondary to renal failure Hyperkalemia improved yesterday down to 5.1 from 7.6 but up to 6.4 again today. Repeat Kayexalate 30 g rectal, Insulin iv and recheck BMP in afternoon.. I discussed with [facility], Dr. Ruff Hypertensive urgency Continue home antihypertensive medications Closely monitor blood pressure Diabetes mellitus type 2.Uncontrolled Accu-Chek q 6h, since he is NPO Not started on he Insulin yet because he is NPO Sliding-scale insulin/NovoLog S/P Left hernia repair Managed by Surgeon, Dr. Amin and I discussed with him. Start ice chips Hyponatermia Started IV fluid hydration Closely monitor electrolytes Medical noncompliance. he has CKD but has not gone to [facility] in more than 1 year. Full code status. History Interval history: Patient had hernia repair, Mild abdominal pain, hungry no chest pain Hospitalist Physical - Physical exam Narrative exam: GEN APPEARANCE : Not in acute distress, HEENT: Normocephalic Atraumatic NECK : supple, no JVD LUNGS: Clear, no wheeze HEART: S1 and S2 regular, no murmurs, rubs or gallop, ABD: Soft, no tenderness, no distension, normal bowel sounds EXT: No edema, no clubbing, no cyanosis NEURO: Awake,alert,oriented x 3. No focal signs Psych:Normal mood - Constitutional Vitals: Temp Pulse Resp BP Pulse Ox 98.8 F 105 H 20 143/95 94 03/22/17 05:03 03/22/17 08:53 03/22/17 05:03 03/22/17 05:03 03/22/17 05:03 General appearance: Present: no acute distress Results - Labs CBC & Chem 7: 03/23/17 06:28 03/23/17 06:28 Labs: Laboratory Last Values WBC 7.9 K/mm3 (4.5-11.0) 03/22/17 09:47 RBC 6.29 M/mm3 (3.65-5.03) H 03/22/17 09:47 Hgb 17.4 gm/dl (11.8-15.2) H 03/22/17 09:47 Hct 55.8 % (35.5-45.6) H 03/22/17 09:47 MCV 89 fl (84-94) 03/22/17 09:47 MCH 28 pg (28-32) 03/22/17 09:47 MCHC 31 % (32-34) L 03/22/17 09:47 RDW 17.1 % (13.2-15.2) H 03/22/17 09:47 Plt Count 132 K/mm3 (140-440) L 03/22/17 09:47 Lymph % (Auto) 5.8 % (13.4-35.0) L 03/21/17 03:34 [place] % (Auto) 11.1 % (0.0-7.3) H 03/21/17 03:34 Eos % (Auto) 0.0 % (0.0-4.3) 03/21/17 03:34 Baso % (Auto) 0.2 % (0.0-1.8) 03/21/17 03:34 Lymph # 0.5 K/mm3 (1.2-5.4) L 03/21/17 03:34 [place] # 1.0 K/mm3 (0.0-0.8) H 03/21/17 03:34 Eos # 0.0 K/mm3 (0.0-0.4) 03/21/17 03:34 Baso # 0.0 K/mm3 (0.0-0.1) 03/21/17 03:34 Seg Neutrophils % 82.9 % (40.0-70.0) H 03/21/17 03:34 Seg Neutrophils # 7.5 K/mm3 (1.8-7.7) 03/21/17 03:34 Sodium 140 mmol/L (137-145) 03/22/17 09:47 Potassium 6.4 mmol/L (3.6-5.0) H* D 03/22/17 09:47 Chloride 105.5 mmol/L (98-107) 03/22/17 09:47 Carbon Dioxide 22 mmol/L (22-30) 03/22/17 09:47 Anion Gap 19 mmol/L 03/22/17 09:47 BUN 43 mg/dL (9-20) H 03/22/17 09:47 Creatinine 1.7 mg/dL (0.8-1.5) H 03/22/17 09:47 Estimated GFR 50 ml/min 03/22/17 09:47 BUN/Creatinine Ratio 25 % 03/22/17 09:47 Glucose 184 mg/dL (75-100) H 03/22/17 09:47 POC Glucose 176 (70-105) H 03/21/17 21:54 Calcium 8.4 mg/dL (8.4-10.2) 03/22/17 09:47 Total Creatine Kinase 267 units/L (55-170) H 03/21/17 11:50 NT-Pro-B Natriuret Pep 366.0 pg/mL (0-900) 03/21/17 11:50 Urine Color Yellow (Yellow) 03/21/17 19:47 Urine Turbidity Clear (Clear) 03/21/17 19:47 Urine pH 5.0 (5.0-7.0) 03/21/17 19:47 Ur Specific [place] 1.008 (1.003-1.030) 03/21/17 19:47 Urine Protein <15 mg/dl mg/dL (Negative) 03/21/17 19:47 Urine Glucose (UA) >=500 mg/dL (Negative) 03/21/17 19:47 Urine Ketones Neg mg/dL (Negative) 03/21/17 19:47 Urine Blood Sm (Negative) 03/21/17 19:47 Urine Nitrite Neg (Negative) 03/21/17 19:47 Urine Bilirubin Neg (Negative) 03/21/17 19:47 Urine Urobilinogen < 2.0 mg/dL (<2.0) 03/21/17 19:47 Ur Leukocyte Esterase Neg (Negative) 03/21/17 19:47 Urine WBC (Auto) 1.0 /HPF (0.0-6.0) 03/21/17 19:47 Urine RBC (Auto) < 1.0 /HPF (0.0-6.0) 03/21/17 19:47 U Epithel Cells (Auto) < 1.0 /HPF (0-13.0) 03/21/17 19:47 Urine Bacteria (Auto) 1+ /HPF (Negative) 03/21/17 19:47 Hyaline Casts 3 /LPF 03/21/17 19:47 Urine Mucus Few /HPF 03/21/17 19:47 Urine Eosinophils None seen (None Seen) 03/21/17 19:47 Urine Creatinine 62.3 mg/dL (0.1-20.0) H 03/21/17 19:30 Urine Sodium 91 mmol/L 03/21/17 19:30 Urine Urea Nitrogen 278 03/21/17 19:30
[2017-03-22] MEDS: NOVOLOG SUB-Q SCH ×4 (11:31→21:16)
--- NOTE | 2017-03-22 11:31 | Progress Note ---
Assessment and Plan POD # 2 Pt c/o mild nausea otherwise doing well Abd 1+ distended. non tender. hypoactive BS still persistent hyperkalemia and uncontrolled hypertension ileus elevated h/h ? surgically stable renal & hospitalist eval appreciated ambulation po meds & ice chips hematology eval Selected Entries 03/22/17 10:38 Temperature 99.0 F Pulse Rate 99 H Respiratory 20 Rate Blood Pressure 123/97 Laboratory Tests 03/22/17 03/22/17 09:47 09:47 WBC 7.9 Hgb 17.4 H Hct 55.8 H Sodium 140 Potassium 6.4 H* D Chloride 105.5 BUN 43 H Creatinine 1.7 H Glucose 184 H Objective Vital Signs - 12hr 03/21/17 03/21/17 03/22/17 23:56 23:57 05:03 Temperature 97.9 F 98.8 F Pulse Rate 104 H 101 H 101 H Respiratory 24 22 20 Rate Blood Pressure 115/86 143/95 O2 Sat by Pulse 95 93 94 Oximetry 03/22/17 03/22/17 08:53 10:38 Temperature 99.0 F Pulse Rate 105 H 99 H Respiratory 20 Rate Blood Pressure 123/97 O2 Sat by Pulse 89 Oximetry - Labs 03/22/17 09:47 03/22/17 09:47 Diabetes panel 03/21/17 03/22/17 Range/Units 18:25 09:47 Sodium 139 140 (137-145) mmol/L Potassium 5.1 H D 6.4 H* D (3.6-5.0) mmol/L Chloride 99.1 105.5 (98-107) mmol/L Carbon Dioxide 19 L 22 (22-30) mmol/L BUN 53 H 43 H (9-20) mg/dL Creatinine 2.6 H 1.7 H (0.8-1.5) mg/dL Glucose 247 H 184 H (75-100) mg/dL Calcium 9.1 8.4 (8.4-10.2) mg/dL Calcium panel 03/21/17 03/22/17 Range/Units 18:25 09:47 Calcium 9.1 8.4 (8.4-10.2) mg/dL Pituitary panel 03/21/17 03/22/17 Range/Units 18:25 09:47 Sodium 139 140 (137-145) mmol/L Potassium 5.1 H D 6.4 H* D (3.6-5.0) mmol/L Chloride 99.1 105.5 (98-107) mmol/L Carbon Dioxide 19 L 22 (22-30) mmol/L BUN 53 H 43 H (9-20) mg/dL Creatinine 2.6 H 1.7 H (0.8-1.5) mg/dL Glucose 247 H 184 H (75-100) mg/dL Calcium 9.1 8.4 (8.4-10.2) mg/dL Adrenal panel 03/21/17 03/22/17 Range/Units 18:25 09:47 Sodium 139 140 (137-145) mmol/L Potassium 5.1 H D 6.4 H* D (3.6-5.0) mmol/L Chloride 99.1 105.5 (98-107) mmol/L Carbon Dioxide 19 L 22 (22-30) mmol/L BUN 53 H 43 H (9-20) mg/dL Creatinine 2.6 H 1.7 H (0.8-1.5) mg/dL Glucose 247 H 184 H (75-100) mg/dL Calcium 9.1 8.4 (8.4-10.2) mg/dL
[2017-03-22] MEDS ORDERED: KIONEX PR ONE ×3 (11:40→18:00)
[2017-03-22] MEDS ORDERED: D50W (25GM) Vial IV PRN (11:42)
[2017-03-22] MEDS ORDERED: LASIX 100 MG in NACL 0.9% 50 ML IV ONE (11:42)
[2017-03-22] MEDS ORDERED: CALCIUM GLUCONATE 1,000 MG in NACL 0.9% 100 ML IV ONE (11:46)
[2017-03-22] MEDS ORDERED: PROVENTIL IH ONE (11:50)
[2017-03-22] MEDS ORDERED: D50W (25GM) Vial IV ONE (12:00)
--- NOTE | 2017-03-22 13:51 | Query- General ---
Alxeandria Zacarias____Alta Date: 03/22/17 Literary Agent/CDS:___Cesar Phone#:___[phone] Exercise your independent professional judgment when responding to this query. Questions asked do not imply a particular answer is desired or expected. We greatly appreciate your clarification on this issue. Clinical Documentation States: 56 year old male was admitted on 03/21/17 The Operative report (Dr. Amin 03/20/17) states " Postoperative diagnosis: ventral hernia Procedure: exploratory laparotomy and ventral hernia repair with mesh" Clinical Findings Show (include reference to source document): 03/21/17 03/21/17 03/22/17 Creatinine: 3.1 2.6 1.7 BUN/Creatinine Ratio: 17 20 25 Given the above clinical scenario can you please provide an appropriate diagnosis based on your knowledge of the patient: PHYSICIAN RESPONSE: [ x] Tubular Necrosis [ ] Cortical Necrosis [ ] Medullary Necrosis [ ] Vasomotor Nephropathy [ ] Tubular Nephrosis [ ] Lower tubular nephrosis [ ] Shock kidney [ ] Renal tubular stasis [ ] Other (Please specify) [ ] Clinically undeterminable Present on Admission: [x ] Yes (Y) [ ] Clinically undeterminable (W) [ ]No(N) Please also document response in your Progress Notes and/or Discharge Summary and indicate if the condition was present on admission. JOLYNND
--- NOTE | 2017-03-22 13:55 | Query- Abnormal Electrolytes ---
Alexandria Zacarias Alta Date:___03/22/17 Warning Coordination Meteorologist/CDS: Thait Phone#:____[phone] Exercise your independent professional judgment when responding to this query. Questions asked do not imply a particular answer is desired or expected. We greatly appreciate your clarification on this issue. Clinical Documentation States: 56 year old male was admitted on 03/21/17 The Operative report (Dr. hilario 03/20/17) states " Postoperative diagnosis: Ventral hernia Procedure: Exploratory laparotomy and ventral hernia repair with mesh. " Clinical Findings Show: Sodium: 130 Can you please clarify whether you mean? [ x] Hyponatremia [ ] Hypokalemia [ ] Hypocalcemia [ ] Hypomagnesemia [ ] Hypernatremia [ ] Hyperkalemia [ ] Hypercalcemia [ ] Hypermagnesemia [ ] Sodium deficiency [ ] Potassium deficiency [ ] Hypochloremia [ ] Sodium excess [ ] Potassium excess [ ] Hyperchloremia [ ] Sodium overload [ ] Potassium overload [ ] Hypophosphatemia [ ] Hyperphosphatemia Acidosis; [ ] Respiratory [ ] Metabolic Alkalosis; [ ] Respiratory [ ] Metabolic [ ] Other: [ ] Comment/Explanation: Present on Admission: [x ] Yes (Y) [ ] Clinically undeterminable (W) [ ]No(N) Please also document response in your Progress Notes and/or Discharge Summary and indicate if the condition was present on admission. OLIVIA
[2017-03-22 16:34] LABS: Calcium 9.5 mg/dL (8.4-10.2); Chloride 107.6 mmol/L (98-107); Potassium 5.2 mmol/L (3.6-5.0)
[2017-03-23] MEDS: NACL 0.9% 1000 ML 1,000 ML IV SCH ×2 (03:10→12:05)
[2017-03-23 07:11] LABS: Hematocrit 54.8 % (35.5-45.6); Hemoglobin 17.7 gm/dl (11.8-15.2); Mean Corpuscular HGB Conc 32 % (32-34); Mean Corpuscular Hemoglobin 29 pg (28-32); Mean Corpuscular Volume 88 fl (84-94); Platelet Count 127 K/mm3 (140-440); Red Cell Distribution Width 17.2 % (13.2-15.2); White Blood Count 5.9 K/mm3 (4.5-11.0)
[2017-03-23 07:22] LABS: Calcium 8.7 mg/dL (8.4-10.2); Chloride 106.7 mmol/L (98-107); Potassium 4.3 mmol/L (3.6-5.0)
[2017-03-23] MEDS: LYRICA PO SCH ×2 (10:15→23:25)
[2017-03-23] MEDS: HCTZ PO SCH (10:15)
[2017-03-23] MEDS: PROTONIX PO SCH (10:15)
[2017-03-23] MEDS: NOVOLOG SUB-Q SCH ×4 (10:16→23:25)
[2017-03-23] MEDS: LEVEMIR SUB-Q SCH ×2 (10:16→23:24)
[2017-03-23] MEDS: MORPHINE IV PRN ×2 (10:36→19:23)
--- NOTE | 2017-03-23 10:52 | Progress Note ---
Assessment and Plan Hyperkalemia: -K down with medical management yesterday. -Low K diet when able to eat -Holding lisinopril for now Acute Renal failure possible due to ATN/pre renal: Chronic kidney disease stage 3-4: -No recent BL Cr available, last Cr in Nov 2016 was 1.7. Likely pre renal ARF -Likely has CKD from DM/HTN -Holding lisinopril for now -Cr trending down. -Renally dose all meds and avoid nephrotoxic meds -Renal US -ve for hydronephrosis, shows chronicity. Hypernatremia, hypertonic: -Change IVFs to 1/2 NS at 100 mls/hr. s/p Hernia repair: -GS on board, per them Diabetes mellitus type 2 on insulin: -On ISS -Per primary Essential Hypertension: -Avoid Gene ing/ARB for now -Titrate home med to keep SBP <130 Hyperlipidemia, chronic: -Statin -Target LDL <70 Plan d/w Family at bedside. Pt says he would like to f/u with [facility] on discharge since it is closer to his home. Stanislav Ruff MD Nephrology, Hypertension, Dialysis, Transplantation Phone no: [phone] Subjective Date of service: 03/23/17 Interval history: Denies CP/SHOB. Making urine. Family at bedside. Objective - Exam Narrative Exam: GE: AAOX3 HEENT: PERRLA Neck: Supple Chest: CTAB CVS: RRR Abd: BS+ Ext: No cce Psyche: Appropriate mood - Vital Signs Vital signs: Vital Signs - 12hr 03/23/17 00:03 Temperature 99.1 F Pulse Rate 110 H Respiratory 20 Rate Blood Pressure 111/81 O2 Sat by Pulse 93 Oximetry - Lab 03/23/17 06:28 03/23/17 06:28 Most recent lab results Calcium 8.7 mg/dL (8.4-10.2) 03/23/17 06:28 Urine Creatinine 62.3 mg/dL (0.1-20.0) H 03/21/17 19:30 Urine Sodium 91 mmol/L 03/21/17 19:30
--- NOTE | 2017-03-23 11:45 | Hem/Onc Consultation ---
History of Present Illness - Reason for Consult Consult date: 03/23/17 - History of Present Illness dictated c follow cbc high hemoglobin could be from dehydration ck jak2 and will follow as op Past History Past Medical History: diabetes, hypertension, hyperlipidemia, other (chronic renal failure) Past Surgical History: Other (hernia repair) Social history: denies: smoking, alcohol abuse Family history: diabetes, hypertension Medications and Allergies Allergies Allergy/AdvReac Type Severity Reaction Status Date / Time No Known Allergies Allergy Verified 03/16/17 14:25 Home Medications Medication Instructions Recorded Confirmed Last Taken Type Aspirin [Aspirin BABY CHEW TAB] 81 mg PO QDAY 09/09/14 03/21/17 09/04/14 History Atorvastatin [Lipitor] 40 mg PO QHS 09/09/14 03/21/17 09/11/14 19:00 History Canagliflozin (Nf) [Invokana] 100 mg PO DAILY 09/09/14 03/21/17 09/10/14 09:00 History Esomeprazole Magnesium [NexIUM] 40 mg PO QDAY 09/09/14 03/21/17 Unknown History Fluticasone [Flonase] 1 spray NS PRN PRN 09/09/14 03/21/17 Unknown History Hydrochlorothiazide [Hctz] 25 mg PO QDAY 09/09/14 03/21/17 09/11/14 09:00 History Insulin Glargine,Hum.rec.anlog 40 unit SQ BID 09/09/14 03/21/17 09/11/14 16:00 History [Lantus Solostar] Insulin Lispro [HumaLOG] 20 unit SQ TID PRN 09/09/14 03/21/17 Unknown History Lisinopril [Zestril] 40 mg PO QDAY 09/09/14 03/21/17 09/12/14 04:30 History Mometasone Furoate [Nasonex] 2 spray NS PRN PRN 09/09/14 03/21/17 Unknown History Montelukast [Singulair] 10 mg PO PRN PRN 09/09/14 03/21/17 Unknown History Polyethylene Glycol 3350 [Miralax 17 gm PO DAILY PRN 09/09/14 03/21/17 Unknown History 3350] Pregabalin [Lyrica] 225 mg PO BID 09/09/14 03/21/17 09/11/14 19:00 History Vardenafil HCl [Levitra] 20 mg PO QDAY PRN 09/09/14 03/21/17 Unknown History Zolpidem [Ambien] 5 mg PO QHS PRN 09/09/14 03/21/17 Unknown History HYDROcodone/APAP 5-325 [Spencer 1 - 2 each PO Q4HR PRN #30 tablet 09/12/14 Unknown Rx 5/325] Active Meds: Active Medications Acetaminophen (Tylenol) 650 mg PO Q4H PRN PRN Reason: Pain, Mild (1-3) Last Admin: 03/21/17 22:27 Dose: 650 mg Atorvastatin Calcium (Lipitor) 40 mg PO QHS [facility] Last Admin: 03/22/17 21:15 Dose: 40 mg Dextrose (D50w (25gm) Vial) 25 gm IV PRN PRN PRN Reason: Hypoglycemia Fluticasone Propionate (Flonase) 100 mcg NS QDAY PRN PRN Reason: Allergy Symptoms Hydrochlorothiazide (Hctz) 25 mg PO QDAY [facility] Last Admin: 03/23/17 10:15 Dose: 25 mg Hydromorphone HCl (Dilaudid) 0.25 mg IV Q3H PRN PRN Reason: Pain , Severe (7-10) Last Admin: 03/20/17 19:09 Dose: 0.25 mg Sodium Chloride (Nacl 0.9% 1000 Ml) 1,000 mls @ 125 mls/hr IV DIRECT [facility] Last Admin: 03/23/17 03:10 Dose: 125 mls/hr Insulin Aspart (Novolog) 0 units SUB-Q ACHS [facility] PRN Reason: Protocol Last Admin: 03/23/17 10:16 Dose: Not Given Insulin Detemir (Levemir) 40 units SUB-Q BID [facility] Last Admin: 03/23/17 10:16 Dose: 40 units Morphine Sulfate (Morphine) 4 mg IV Q3H PRN PRN Reason: Pain , Severe (7-10) Last Admin: 03/23/17 10:36 Dose: 4 mg Ondansetron HCl (Zofran) 4 mg IV Q4H PRN PRN Reason: N/V unrelieved by Christine Last Admin: 03/22/17 05:29 Dose: 4 mg Pantoprazole Sodium (Protonix) 40 mg PO DAILY [facility] Last Admin: 03/23/17 10:15 Dose: 40 mg Pregabalin (Lyrica) 225 mg PO BID [facility] Last Admin: 03/23/17 10:15 Dose: 225 mg Zolpidem Tartrate (Ambien) 5 mg PO QHS PRN PRN Reason: Sleep Exam - Constitutional Vitals: Last Vital Signs Temp 99.1 F 03/23/17 00:03 Pulse 110 H 03/23/17 00:03 Resp 20 03/23/17 00:03 BP 111/81 03/23/17 00:03 Pulse Ox 93 03/23/17 00:03 Results - Labs lab Results: Laboratory Results - last 24 hr 03/21/17 03/22/17 03/22/17 13:59 15:50 18:00 WBC RBC Hgb Hct MCV MCH MCHC RDW Plt Count Sodium 146 H Potassium 5.2 H Chloride 107.6 H Carbon Dioxide 24 Anion Gap 20 BUN 43 H Creatinine 1.9 H Estimated GFR 44 BUN/Creatinine Ratio 23 Glucose 143 H POC Glucose 247 H 108 H Calcium 9.5 03/22/17 03/23/17 03/23/17 21:17 06:28 06:28 WBC 5.9 RBC 6.20 H Hgb 17.7 H Hct 54.8 H MCV 88 MCH 29 MCHC 32 RDW 17.2 H Plt Count 127 L Sodium 146 H Potassium 4.3 Chloride 106.7 Carbon Dioxide 26 Anion Gap 18 BUN 37 H Creatinine 1.6 H Estimated GFR 54 BUN/Creatinine Ratio 23 Glucose 118 H POC Glucose 71 Calcium 8.7 03/23/17 08:11 WBC RBC Hgb Hct MCV MCH MCHC RDW Plt Count Sodium Potassium Chloride Carbon Dioxide Anion Gap BUN Creatinine Estimated GFR BUN/Creatinine Ratio Glucose POC Glucose 105 Calcium
--- NOTE | 2017-03-23 12:08 | Event Note ---
Date: 03/23/17 mild low plts could be reactive - will follow
--- NOTE | 2017-03-23 12:10 | Progress Note ---
Assessment and Plan Pt feeling O.K. no new compl Abd 1+ distention hypoactive BS K+ improved! hematology eval appreciated. surgically stable persistent ileus abd series today continue present care Selected Entries 03/23/17 00:03 Temperature 99.1 F Respiratory 20 Rate Blood Pressure 111/81 Laboratory Tests 03/23/17 03/23/17 06:28 06:28 WBC 5.9 Hgb 17.7 H Hct 54.8 H Sodium 146 H Potassium 4.3 Chloride 106.7 Carbon Dioxide 26 Anion Gap 18 BUN 37 H Creatinine 1.6 H Objective - Labs 03/23/17 06:28 03/23/17 06:28 Diabetes panel 03/22/17 03/23/17 Range/Units 15:50 06:28 Sodium 146 H 146 H (137-145) mmol/L Potassium 5.2 H 4.3 (3.6-5.0) mmol/L Chloride 107.6 H 106.7 (98-107) mmol/L Carbon Dioxide 24 26 (22-30) mmol/L BUN 43 H 37 H (9-20) mg/dL Creatinine 1.9 H 1.6 H (0.8-1.5) mg/dL Glucose 143 H 118 H (75-100) mg/dL Calcium 9.5 8.7 (8.4-10.2) mg/dL Calcium panel 03/22/17 03/23/17 Range/Units 15:50 06:28 Calcium 9.5 8.7 (8.4-10.2) mg/dL Pituitary panel 03/22/17 03/23/17 Range/Units 15:50 06:28 Sodium 146 H 146 H (137-145) mmol/L Potassium 5.2 H 4.3 (3.6-5.0) mmol/L Chloride 107.6 H 106.7 (98-107) mmol/L Carbon Dioxide 24 26 (22-30) mmol/L BUN 43 H 37 H (9-20) mg/dL Creatinine 1.9 H 1.6 H (0.8-1.5) mg/dL Glucose 143 H 118 H (75-100) mg/dL Calcium 9.5 8.7 (8.4-10.2) mg/dL Adrenal panel 03/22/17 03/23/17 Range/Units 15:50 06:28 Sodium 146 H 146 H (137-145) mmol/L Potassium 5.2 H 4.3 (3.6-5.0) mmol/L Chloride 107.6 H 106.7 (98-107) mmol/L Carbon Dioxide 24 26 (22-30) mmol/L BUN 43 H 37 H (9-20) mg/dL Creatinine 1.9 H 1.6 H (0.8-1.5) mg/dL Glucose 143 H 118 H (75-100) mg/dL Calcium 9.5 8.7 (8.4-10.2) mg/dL
[2017-03-23] MEDS ORDERED: NACL 0.45% 1000 ML 1,000 ML IV SCH (13:00)
--- NOTE | 2017-03-23 16:30 | Progress Note ---
Assessment and Plan /Acute on chronic kidney disease. Cr was 3.0 on admission He has not been to [facility] in more than 1 year. Baseline unknown, Renal US ordered Nephrology following /Hyperkalemia Secondary to renal failure Hyperkalemia improved from 7.6 s/p Kayexalate 30 g rectal, Insulin iv and d50 /Hypertensive urgency cannot give home antihypertensive medications as he is NPO Closely monitor blood pressure, PRN hydralazine as needed /Diabetes mellitus type 2.Uncontrolled Accu-Chek q 6h, since he is NPO Not started on he Insulin yet because he is NPO Sliding-scale insulin/NovoLog /S/P Left hernia repair Managed by Surgeon, Dr. Amin and I discussed with him. cont ice chips /Hyponatermia Started IV fluid hydration Closely monitor electrolytes /Medical noncompliance. he has CKD but has not gone to [facility] in more than 1 year. Full code status. Dvt Px Scd brief Hospital course: Patient is a 56 years old male with past medical history of hypertension, diabetes mellitus, chronic renal failure, hyperlipidemia , who was consulted form general surgery to us for medical management of hypertension and diabetes mellitus. Patient has had hernia repair ; this procedure occurred on 03/20/2017. Hospitalist Physical GEN APPEARANCE : Not in acute distress, HEENT: Normocephalic Atraumatic NECK : supple, no JVD LUNGS: Clear, no wheeze HEART: S1 and S2 regular, no murmurs, rubs or gallop, ABD: Soft, no tenderness, no distension, normal bowel sounds EXT: No edema, no clubbing, no cyanosis NEURO: Awake,alert,oriented x 3. No focal signs Psych:Normal mood Subjective Date of service: 03/23/17 Interval history: Patient had hernia repair, c/o Mild abdominal pain, no chest pain Objective - Labs CBC & Chem 7: 03/24/17 05:21 03/23/17 06:28 Labs: Abnormal lab results 03/22/17 03/22/17 03/23/17 Range/Units 15:50 18:00 06:28 RBC (3.65-5.03) M/mm3 Hgb (11.8-15.2) gm/dl Hct (35.5-45.6) % RDW (13.2-15.2) % Plt Count (140-440) K/mm3 Sodium 146 H 146 H (137-145) mmol/L Potassium 5.2 H (3.6-5.0) mmol/L Chloride 107.6 H (98-107) mmol/L BUN 43 H 37 H (9-20) mg/dL Creatinine 1.9 H 1.6 H (0.8-1.5) mg/dL Glucose 143 H 118 H (75-100) mg/dL POC Glucose 108 H (70-105) 03/23/17 Range/Units 06:28 RBC 6.20 H (3.65-5.03) M/mm3 Hgb 17.7 H (11.8-15.2) gm/dl Hct 54.8 H (35.5-45.6) % RDW 17.2 H (13.2-15.2) % Plt Count 127 L (140-440) K/mm3 Sodium (137-145) mmol/L Potassium (3.6-5.0) mmol/L Chloride (98-107) mmol/L BUN (9-20) mg/dL Creatinine (0.8-1.5) mg/dL Glucose (75-100) mg/dL POC Glucose (70-105)
--- NOTE | 2017-03-23 18:51 | XRay Report ---
FINAL REPORT PROCEDURE: XR ABD SERIES W CXR 1V TECHNIQUE: Abdominal series complete, including supine and upright AP views of the abdomen and frontal chest. HISTORY: Ileus. COMPARISON: No prior studies are available for comparison. FINDINGS: Heart: Normal. Mediastinum/Vessels: Normal. Lungs/Pleural space: Lingular and left lower lobe linear opacities. Bowel gas pattern: Air and stool throughout the colon. Masses or calcifications: Moderate vascular calcification. Pelvic phleboliths. Ventral hernia repair. Bony structures: Multilevel osteophytes and disc space narrowing. Other: No free intraperitoneal air. Midline skin rosemary. IMPRESSION: Air in stool throughout the colon, could be within normal anatomic variation. Also consider ileus, less likely obstruction. Lingular and left lower lobe linear opacities, likely atelectasis. Limited evaluation for free air. With midline skin rosemary consider patient has had recent surgery and therefore free air would not be unexpected in the postoperative setting. Recommend attention on repeat radiographs or CT scan if there is continued clinical concern.
[2017-03-24] MEDS: D50W (25GM) Vial IV PRN ×2 (01:42→10:24)
--- NOTE | 2017-03-24 03:39 | Consultation ---
REFERRING PHYSICIAN: Everett Holm M.D. REASON FOR CONSULTATION: Erythrocytosis. HISTORY OF PRESENT ILLNESS: The patient is a 56-year-old male who has history of hypertension, diabetes, chronic renal insufficiency, hyperlipidemia who had gotten admitted for hernia repair. The procedure occurred on 03/20/2017, he tolerated the procedure well and was stable. During his hospital stay, the patient was found to have elevated hemoglobin of 18.3, hematocrit 58.3. His creatinine was 3.0, BUN 49. Because of erythrocytosis, hematology consult was called. The patient denies having been told that he has high hemoglobin in the past. He does not smoke. He does not take any hormones. He is being hydrated and his creatinine has come down to 1.6. His hemoglobin has also come down to 17.7, hematocrit 54.8 today. The patient currently feels he is recovering from surgery; he is having bowel movements. PAST MEDICAL HISTORY: As mentioned in the history of present illness. PHYSICAL EXAMINATION: GENERAL: The patient is awake and oriented. HEAD AND ENT: Unremarkable. CHEST: Clear. CARDIOVASCULAR: Regular rate and rhythm. ABDOMEN: Midline incision. EXTREMITIES: No clubbing or cyanosis. LABORATORY DATA: As mentioned in the history of present illness. ASSESSMENT: Erythrocytosis, could be related to dehydration, slowly improving, rule out polycythemia vera. PLAN: At this time, we will follow his CBC carefully. Check JAK2 analysis. We will also check erythropoietin level. We will monitor. Once discharged, I can follow him as outpatient. JOB# [id number] LEYLA/NTS
[2017-03-24] MEDS: MORPHINE IV PRN ×2 (05:47→10:51)
[2017-03-24 06:05] LABS: Basophils % (Auto) 0.8 % (0.0-1.8); Eosinophils % (Auto) 4.5 % (0.0-4.3); Mean Corpuscular HGB Conc 31 % (32-34); Mean Corpuscular Hemoglobin 27 pg (28-32); Mean Corpuscular Volume 89 fl (84-94); Platelet Count 139 K/mm3 (140-440); Red Blood Count 6.65 M/mm3 (3.65-5.03); Red Cell Distribution Width 17.3 % (13.2-15.2)
[2017-03-24 06:11] LABS: Hemoglobin 18.2 gm/dl (11.8-15.2)
[2017-03-24 06:12] LABS: Hematocrit 58.2 % (35.5-45.6)
[2017-03-24] MEDS ORDERED: LOVENOX SUB-Q ONE (09:40)
--- NOTE | 2017-03-24 09:49 | Hem/Onc Progress Note ---
Assessment and Plan On further questioning, patient does state that he has been on androgens for low hormone levels. He thinks he may have taken it 2 or so months ago. This can cause high hemoglobin. I have instructed him to stop the androgens as soon as possible. We will monitor his hemoglobin. We will order lower extremity Doppler for his lower extremity numbness although no swelling. We'll also start DVT prophylaxis. Subjective Date of service: 03/24/17 Interval history: Patient sleepy today. Complains of some lower extremity numbness. Not ambulating well. Objective - Constitutional Vitals: Last Vital Signs Temp 98.4 F 03/24/17 05:35 Pulse 79 03/24/17 05:35 Resp 18 03/23/17 23:45 BP 145/95 03/24/17 05:35 Pulse Ox 97 03/23/17 23:45 General appearance: no acute distress Performance status: 3-limited selfcare - Neck Neck: supple - Respiratory Respiratory effort: Positive: normal Respiratory: bilateral: CTA - Cardiovascular Rhythm: regular Extremities: No edema - Gastrointestinal General gastrointestinal: Present: soft (midline incision bandaged) - Labs Lab Results: Laboratory Results - last 24 hr 03/23/17 03/23/17 03/23/17 08:11 12:32 17:06 WBC RBC Hgb Hct MCV MCH MCHC RDW Plt Count Lymph % (Auto) [place] % (Auto) Eos % (Auto) Baso % (Auto) Lymph # [place] # Eos # Baso # Seg Neutrophils % Seg Neutrophils # POC Glucose 105 87 46 L 03/23/17 03/23/17 03/23/17 18:20 18:40 20:12 WBC RBC Hgb Hct MCV MCH MCHC RDW Plt Count Lymph % (Auto) [place] % (Auto) Eos % (Auto) Baso % (Auto) Lymph # [place] # Eos # Baso # Seg Neutrophils % Seg Neutrophils # POC Glucose 68 L 67 L 67 L 03/23/17 03/24/17 03/24/17 21:47 01:32 02:40 WBC RBC Hgb Hct MCV MCH MCHC RDW Plt Count Lymph % (Auto) [place] % (Auto) Eos % (Auto) Baso % (Auto) Lymph # [place] # Eos # Baso # Seg Neutrophils % Seg Neutrophils # POC Glucose 58 L 43 L 84 03/24/17 05:21 WBC 6.0 RBC 6.65 H Hgb 18.2 H Hct 58.2 H MCV 89 MCH 27 L MCHC 31 L RDW 17.3 H Plt Count 139 L Lymph % (Auto) 22.1 [place] % (Auto) 13.1 H Eos % (Auto) 4.5 H Baso % (Auto) 0.8 Lymph # 1.3 [place] # 0.8 Eos # 0.3 Baso # 0.0 Seg Neutrophils % 59.5 Seg Neutrophils # 3.6 POC Glucose
--- NOTE | 2017-03-24 10:34 | Progress Note ---
Assessment and Plan Acute Renal failure possible due to ATN/pre renal: Chronic kidney disease stage 3-4: -No recent BL Cr available, last Cr in Nov 2016 was 1.7. Likely pre renal ARF -Likely has CKD from DM/HTN -Holding lisinopril for now -Cr coming down. Better than baseline. -Renally dose all meds and avoid nephrotoxic meds -Renal US -ve for hydronephrosis, shows chronicity. Hyperkalemia: -Low K diet. Improved with medical management. Hypernatremia, hypertonic: -Improved. Now on D5NS at 75 cc/hr. s/p Hernia repair: -GS on board, per them Diabetes mellitus type 2 on insulin: -On ISS -Per primary Essential Hypertension: -Avoid Gene ing/ARB for now -Titrate home med to keep SBP <130 Hyperlipidemia, chronic: -Statin -Target LDL <70 Plan d/w Family at bedside. Pt says he would like to f/u with [facility] on discharge since it is closer to his home. Stanislav Ruff MD Nephrology, Hypertension, Dialysis, Transplantation Phone no: [phone] Subjective Date of service: 03/24/17 Interval history: Denies CP/SHOB. Eating now. Family at bedside. Objective - Exam Narrative Exam: GE: AAOX3 HEENT: PERRLA Neck: Supple Chest: CTAB CVS: RRR Abd: BS+ Ext: No cce Psyche: Appropriate mood - Vital Signs Vital signs: Vital Signs - 12hr 03/23/17 03/23/17 03/24/17 22:59 23:45 05:35 Temperature 97.8 F 98.4 F Pulse Rate 100 H 88 79 Respiratory 20 18 Rate Blood Pressure 131/84 145/95 [Right] O2 Sat by Pulse 96 97 Oximetry - Lab 03/24/17 05:21 03/24/17 10:09 Most recent lab results Calcium 8.7 mg/dL (8.4-10.2) 03/23/17 06:28 Urine Creatinine 62.3 mg/dL (0.1-20.0) H 03/21/17 19:30 Urine Sodium 91 mmol/L 03/21/17 19:30
[2017-03-24] MEDS: LYRICA PO SCH ×2 (10:38→22:54)
[2017-03-24] MEDS: HCTZ PO SCH (10:40)
[2017-03-24] MEDS: PROTONIX PO SCH (10:40)
[2017-03-24] MEDS: HEPARIN SUB-Q SCH ×2 (10:48→22:53)
[2017-03-24] MEDS: NOVOLOG SUB-Q SCH ×4 (10:49→22:54)
[2017-03-24] MEDS: LEVEMIR SUB-Q SCH (10:49)
[2017-03-24 10:50] LABS: BUN/Creatinine Ratio 25; Blood Urea Nitrogen 27 mg/dL (9-20); Calcium 8.9 mg/dL (8.4-10.2); Carbon Dioxide 23 mmol/L (22-30); Glucose 57 mg/dL (75-100)
[2017-03-24 10:51] LABS: Chloride 102.1 mmol/L (98-107); Sodium 142 mmol/L (137-145)
[2017-03-24 11:04] LABS: Anion Gap 21 mmol/L; Potassium 4.3 mmol/L (3.6-5.0)
--- NOTE | 2017-03-24 11:54 | Progress Note ---
Assessment and Plan /Hypoglycemia Pt is NPO since admission, discussed with GS and will place on clear liquid diet change iv fluid to D5ns hold long acting insulin /Acute on chronic kidney disease. Cr was 3.0 on admission He has not been to [facility] in more than 1 year. Baseline unknown, Renal US ordered Nephrology following , renal function improved /Hyperkalemia Secondary to renal failure Hyperkalemia improved from 7.6 s/p Kayexalate 30 g rectal, Insulin iv and d50 /Hypertensive urgency restart home meds Closely monitor blood pressure, PRN hydralazine as needed /Diabetes mellitus type 2.Uncontrolled on admission Accu-Chek qachs, start on clear liquid Sliding-scale insulin/NovoLog, hold long acting for now /S/P Left hernia repair Managed by Surgeon, Dr. Amin and I discussed with him. cont clear liquid for now /Hypernatermia cont IV fluid hydration Closely monitor electrolytes /Medical noncompliance. he has CKD but has not gone to [facility] in more than 1 year. Full code status. Dvt Px Scd brief Hospital course: Patient is a 56 years old male with past medical history of hypertension, diabetes mellitus, chronic renal failure, hyperlipidemia , who was consulted form general surgery to us for medical management of hypertension and diabetes mellitus. Patient has had hernia repair ; this procedure occurred on 03/20/2017. Hospitalist Physical GEN APPEARANCE : Not in acute distress, HEENT: Normocephalic Atraumatic NECK : supple, no JVD LUNGS: Clear, no wheeze HEART: S1 and S2 regular, no murmurs, rubs or gallop, ABD: Soft, no tenderness, no distension, normal bowel sounds EXT: No edema, no clubbing, no cyanosis NEURO: Awake,alert,oriented x 3. No focal signs Psych:Normal mood Subjective Date of service: 03/24/17 Interval history: Patient had hernia repair, c/o Mild abdominal pain, no chest pain was hypoglycemic this am Objective - Constitutional Vitals: Vital Signs - 12hr 03/24/17 05:35 Temperature 98.4 F Pulse Rate 79 Blood Pressure 145/95 [Right] - Labs CBC & Chem 7: 03/24/17 05:21 03/24/17 10:09 Labs: Abnormal lab results 03/23/17 03/23/17 03/23/17 Range/Units 17:06 18:20 18:40 RBC (3.65-5.03) M/mm3 Hgb (11.8-15.2) gm/dl Hct (35.5-45.6) % MCH (28-32) pg MCHC (32-34) % RDW (13.2-15.2) % Plt Count (140-440) K/mm3 [place] % (Auto) (0.0-7.3) % Eos % (Auto) (0.0-4.3) % BUN (9-20) mg/dL Glucose (75-100) mg/dL POC Glucose 46 L 68 L 67 L (70-105) 03/23/17 03/23/17 03/24/17 Range/Units 20:12 21:47 01:32 RBC (3.65-5.03) M/mm3 Hgb (11.8-15.2) gm/dl Hct (35.5-45.6) % MCH (28-32) pg MCHC (32-34) % RDW (13.2-15.2) % Plt Count (140-440) K/mm3 [place] % (Auto) (0.0-7.3) % Eos % (Auto) (0.0-4.3) % BUN (9-20) mg/dL Glucose (75-100) mg/dL POC Glucose 67 L 58 L 43 L (70-105) 03/24/17 03/24/17 03/24/17 Range/Units 05:21 10:02 10:09 RBC 6.65 H (3.65-5.03) M/mm3 Hgb 18.2 H (11.8-15.2) gm/dl Hct 58.2 H (35.5-45.6) % MCH 27 L (28-32) pg MCHC 31 L (32-34) % RDW 17.3 H (13.2-15.2) % Plt Count 139 L (140-440) K/mm3 [place] % (Auto) 13.1 H (0.0-7.3) % Eos % (Auto) 4.5 H (0.0-4.3) % BUN 27 H (9-20) mg/dL Glucose 57 L (75-100) mg/dL POC Glucose 48 L (70-105) 03/24/17 Range/Units 11:24 RBC (3.65-5.03) M/mm3 Hgb (11.8-15.2) gm/dl Hct (35.5-45.6) % MCH (28-32) pg MCHC (32-34) % RDW (13.2-15.2) % Plt Count (140-440) K/mm3 [place] % (Auto) (0.0-7.3) % Eos % (Auto) (0.0-4.3) % BUN (9-20) mg/dL Glucose (75-100) mg/dL POC Glucose 123 H (70-105)
--- NOTE | 2017-03-24 12:03 | Progress Note ---
Assessment and Plan POD # 4 Pt status quo. no specific compl Abd soft. +BS Abd series - wnl imp: resolving ileus episodes of hypoglycemia begin cl liq ADA diet need PT to ambulate BS & HTN management as per hospitalist Selected Entries 03/23/17 03/24/17 23:45 05:35 Temperature 98.4 F Pulse Rate 79 Respiratory 18 Rate Blood Pressure 145/95 [Right] Laboratory Tests 03/24/17 03/24/17 05:21 10:09 WBC 6.0 Hgb 18.2 H Hct 58.2 H Sodium 142 Potassium 4.3 Chloride 102.1 Carbon Dioxide 23 Anion Gap 21 BUN 27 H Creatinine 1.1 Glucose 57 L Objective Vital Signs - 12hr 03/24/17 05:35 Temperature 98.4 F Pulse Rate 79 Blood Pressure 145/95 [Right] - Labs 03/24/17 05:21 03/24/17 10:09 Diabetes panel 03/24/17 Range/Units 10:09 Sodium 142 (137-145) mmol/L Potassium 4.3 (3.6-5.0) mmol/L Chloride 102.1 (98-107) mmol/L Carbon Dioxide 23 (22-30) mmol/L BUN 27 H (9-20) mg/dL Creatinine 1.1 (0.8-1.5) mg/dL Glucose 57 L (75-100) mg/dL Calcium 8.9 (8.4-10.2) mg/dL Calcium panel 03/24/17 Range/Units 10:09 Calcium 8.9 (8.4-10.2) mg/dL Pituitary panel 03/24/17 Range/Units 10:09 Sodium 142 (137-145) mmol/L Potassium 4.3 (3.6-5.0) mmol/L Chloride 102.1 (98-107) mmol/L Carbon Dioxide 23 (22-30) mmol/L BUN 27 H (9-20) mg/dL Creatinine 1.1 (0.8-1.5) mg/dL Glucose 57 L (75-100) mg/dL Calcium 8.9 (8.4-10.2) mg/dL Adrenal panel 03/24/17 Range/Units 10:09 Sodium 142 (137-145) mmol/L Potassium 4.3 (3.6-5.0) mmol/L Chloride 102.1 (98-107) mmol/L Carbon Dioxide 23 (22-30) mmol/L BUN 27 H (9-20) mg/dL Creatinine 1.1 (0.8-1.5) mg/dL Glucose 57 L (75-100) mg/dL Calcium 8.9 (8.4-10.2) mg/dL
[2017-03-25 05:49] LABS: Basophils % (Auto) 1.1 % (0.0-1.8); Eosinophils % (Auto) 7.5 % (0.0-4.3); Hematocrit 53.5 % (35.5-45.6); Hemoglobin 17.4 gm/dl (11.8-15.2); Mean Corpuscular HGB Conc 33 % (32-34); Mean Corpuscular Hemoglobin 29 pg (28-32); Mean Corpuscular Volume 89 fl (84-94); Platelet Count 136 K/mm3 (140-440); Red Blood Count 6.04 M/mm3 (3.65-5.03); Red Cell Distribution Width 16.2 % (13.2-15.2); White Blood Count 4.8 K/mm3 (4.5-11.0)
[2017-03-25] MEDS: D5NS 1,000 ML IV SCH ×2 (05:51→23:31)
--- NOTE | 2017-03-25 08:27 | Progress Note ---
Assessment and Plan POD # 5 Pt feeling much better today. +flatus. terri cl liq ambulated down halls Abd soft, incision clean & dry surgically stable advance to ADA full liq diet as terri Selected Entries 03/25/17 06:07 Temperature 98.4 F Pulse Rate 75 Respiratory 18 Rate Blood Pressure 127/89 Laboratory Tests 03/25/17 05:23 WBC 4.8 Hgb 17.4 H Hct 53.5 H Objective Vital Signs - 12hr 03/24/17 03/25/17 03/25/17 23:20 00:02 06:07 Temperature 97.7 F 98.4 F Pulse Rate 76 76 75 Respiratory 16 18 18 Rate Blood Pressure 138/94 127/89 O2 Sat by Pulse 97 97 91 Oximetry - Labs 03/25/17 05:23 03/24/17 10:09 Diabetes panel 03/24/17 Range/Units 10:09 Sodium 142 (137-145) mmol/L Potassium 4.3 (3.6-5.0) mmol/L Chloride 102.1 (98-107) mmol/L Carbon Dioxide 23 (22-30) mmol/L BUN 27 H (9-20) mg/dL Creatinine 1.1 (0.8-1.5) mg/dL Glucose 57 L (75-100) mg/dL Calcium 8.9 (8.4-10.2) mg/dL Calcium panel 03/24/17 Range/Units 10:09 Calcium 8.9 (8.4-10.2) mg/dL Pituitary panel 03/24/17 Range/Units 10:09 Sodium 142 (137-145) mmol/L Potassium 4.3 (3.6-5.0) mmol/L Chloride 102.1 (98-107) mmol/L Carbon Dioxide 23 (22-30) mmol/L BUN 27 H (9-20) mg/dL Creatinine 1.1 (0.8-1.5) mg/dL Glucose 57 L (75-100) mg/dL Calcium 8.9 (8.4-10.2) mg/dL Adrenal panel 03/24/17 Range/Units 10:09 Sodium 142 (137-145) mmol/L Potassium 4.3 (3.6-5.0) mmol/L Chloride 102.1 (98-107) mmol/L Carbon Dioxide 23 (22-30) mmol/L BUN 27 H (9-20) mg/dL Creatinine 1.1 (0.8-1.5) mg/dL Glucose 57 L (75-100) mg/dL Calcium 8.9 (8.4-10.2) mg/dL
[2017-03-25] MEDS: NOVOLOG SUB-Q SCH ×4 (08:49→23:32)
[2017-03-25] MEDS: HCTZ PO SCH (10:04)
[2017-03-25] MEDS: PROTONIX PO SCH (10:05)
[2017-03-25] MEDS: LYRICA PO SCH ×2 (10:05→23:31)
[2017-03-25] MEDS: HEPARIN SUB-Q SCH ×2 (10:06→23:32)
[2017-03-25 11:41] LABS: Anion Gap 15 mmol/L; BUN/Creatinine Ratio 20; Blood Urea Nitrogen 22 mg/dL (9-20); Calcium 8.7 mg/dL (8.4-10.2); Carbon Dioxide 28 mmol/L (22-30); Chloride 97.9 mmol/L (98-107); Glucose 147 mg/dL (75-100); Potassium 4.2 mmol/L (3.6-5.0); Sodium 137 mmol/L (137-145)
--- NOTE | 2017-03-25 14:04 | Progress Note ---
Assessment and Plan Acute Renal failure possible due to ATN/pre renal: Chronic kidney disease stage 3-4: -No recent BL Cr available, last Cr in Nov 2016 was 1.7. Likely pre renal ARF -Likely has CKD from DM/HTN -Holding lisinopril for now -Cr stable. Better than baseline. On D5NS at 75 cc/hr. -Renally dose all meds and avoid nephrotoxic meds -Renal US -ve for hydronephrosis, shows chronicity. Hyperkalemia: -Resolved. -Low K diet. Hypernatremia, hypertonic: -Improved. s/p Hernia repair: -GS on board, per them Diabetes mellitus type 2 on insulin: -On ISS -Per primary Essential Hypertension: -Avoid Gene inh/ARB for now -Titrate home med to keep SBP <130 Hyperlipidemia, chronic: -Statin -Target LDL <70 Plan d/w Family at bedside. Pt says he would like to f/u with [facility] on discharge since it is closer to his home. Stanislav Ruff MD Nephrology, Hypertension, Dialysis, Transplantation Phone no: [phone] Subjective Date of service: 03/25/17 Interval history: Denies CP/SHOB. Eating. making urine. Objective - Exam Narrative Exam: GE: AAOX3 HEENT: PERRLA Neck: Supple Chest: CTAB CVS: RRR Abd: BS+ Ext: No cce Psyche: Appropriate mood - Vital Signs Vital signs: Vital Signs - 12hr 03/25/17 06:07 Temperature 98.4 F Pulse Rate 75 Respiratory 18 Rate Blood Pressure 127/89 O2 Sat by Pulse 91 Oximetry - Lab 03/25/17 05:23 03/25/17 10:56 Most recent lab results Calcium 8.7 mg/dL (8.4-10.2) 03/25/17 10:56 Urine Creatinine 62.3 mg/dL (0.1-20.0) H 03/21/17 19:30 Urine Sodium 91 mmol/L 03/21/17 19:30
--- NOTE | 2017-03-25 15:11 | Progress Note ---
Assessment and Plan /Hypoglycemia Pt was NPO since admission, changed iv fluid to D5ns hold long acting insulin cont to advance diet, now resolved /Acute on chronic kidney disease. Cr was 3.0 on admission He has not been to [facility] in more than 1 year. Baseline unknown, Renal US ordered Nephrology following , renal function improved /Hyperkalemia Secondary to renal failure Hyperkalemia improved from 7.6 s/p Kayexalate 30 g rectal, Insulin iv and d50 /Hypertensive urgency restart home meds Closely monitor blood pressure, PRN hydralazine as needed /Diabetes mellitus type 2.Uncontrolled on admission Accu-Chek qachs, start on clear liquid Sliding-scale insulin/NovoLog, hold long acting for now /S/P Left hernia repair Managed by Surgeon, Dr. Amin and I discussed with him. cont to advance diet as tolerated /Hypernatermia cont IV fluid hydration Closely monitor electrolytes /Medical noncompliance. he has CKD but has not gone to [facility] in more than 1 year. Full code status. Dvt Px Scd brief Hospital course: Patient is a 56 years old male with past medical history of hypertension, diabetes mellitus, chronic renal failure, hyperlipidemia , who was consulted form general surgery to us for medical management of hypertension and diabetes mellitus. Patient has had hernia repair ; this procedure occurred on 03/20/2017. Hospitalist Physical GEN APPEARANCE : Not in acute distress, HEENT: Normocephalic Atraumatic NECK : supple, no JVD LUNGS: Clear, no wheeze HEART: S1 and S2 regular, no murmurs, rubs or gallop, ABD: Soft, no tenderness, no distension, normal bowel sounds, surgical suture on place EXT: No edema, no clubbing, no cyanosis NEURO: Awake,alert,oriented x 3. No focal signs Psych:Normal mood Subjective Date of service: 03/25/17 Interval history: Patient had hernia repair, no abdominal pain, no chest pain tolerating diet, no BM yet Objective - Constitutional Vitals: Vital Signs - 12hr 03/25/17 03/25/17 03/25/17 06:07 08:31 11:59 Temperature 98.4 F 98.2 F 97.9 F Pulse Rate 75 75 81 Respiratory 18 18 18 Rate Blood Pressure 127/89 145/102 136/98 O2 Sat by Pulse 91 97 95 Oximetry - Labs CBC & Chem 7: 03/25/17 05:23 03/25/17 10:56 Labs: Abnormal lab results 03/24/17 03/24/17 03/24/17 Range/Units 13:57 17:31 21:36 RBC (3.65-5.03) M/mm3 Hgb (11.8-15.2) gm/dl Hct (35.5-45.6) % RDW (13.2-15.2) % Plt Count (140-440) K/mm3 [place] % (Auto) (0.0-7.3) % Eos % (Auto) (0.0-4.3) % Lymph # (1.2-5.4) K/mm3 Chloride (98-107) mmol/L BUN (9-20) mg/dL Glucose (75-100) mg/dL POC Glucose 115 H 115 H 154 H (70-105) 03/25/17 03/25/17 03/25/17 Range/Units 05:23 08:32 10:56 RBC 6.04 H (3.65-5.03) M/mm3 Hgb 17.4 H (11.8-15.2) gm/dl Hct 53.5 H (35.5-45.6) % RDW 16.2 H (13.2-15.2) % Plt Count 136 L (140-440) K/mm3 [place] % (Auto) 13.7 H (0.0-7.3) % Eos % (Auto) 7.5 H (0.0-4.3) % Lymph # 1.1 L (1.2-5.4) K/mm3 Chloride 97.9 L (98-107) mmol/L BUN 22 H (9-20) mg/dL Glucose 147 H (75-100) mg/dL POC Glucose 189 H (70-105)
--- NOTE | 2017-03-25 17:23 | XRay Report ---
FINAL REPORT EXAM: XR ABDOMEN 1V AP HISTORY: nausea TECHNIQUE: Supine abdomen PRIORS: Comparison is dated March 23, 2017 FINDINGS: Moderate amount of stool and gas present within the colon. No evidence of colonic or small bowel dilatation. No signs of free air. No abnormal calcifications are identified. Surgical clips are noted midline the abdomen IMPRESSION: Nonobstructive bowel gas pattern. No acute abnormality seen.
[2017-03-25] MEDS: TYLENOL PO PRN (18:23)
[2017-03-26 06:40] LABS: Basophils % (Auto) 0.9 % (0.0-1.8); Eosinophils % (Auto) 6.5 % (0.0-4.3); Hematocrit 53.3 % (35.5-45.6); Hemoglobin 17.1 gm/dl (11.8-15.2); Mean Corpuscular HGB Conc 32 % (32-34); Mean Corpuscular Hemoglobin 28 pg (28-32); Mean Corpuscular Volume 87 fl (84-94); Platelet Count 131 K/mm3 (140-440); Red Blood Count 6.13 M/mm3 (3.65-5.03); Red Cell Distribution Width 15.8 % (13.2-15.2); White Blood Count 4.2 K/mm3 (4.5-11.0)
[2017-03-26] MEDS: NOVOLOG SUB-Q SCH ×4 (09:00→22:52)
[2017-03-26] MEDS: TYLENOL PO PRN ×2 (09:00→20:13)
[2017-03-26] MEDS: HEPARIN SUB-Q SCH ×2 (09:44→22:42)
[2017-03-26] MEDS: LYRICA PO SCH ×2 (09:46→22:43)
[2017-03-26] MEDS: PROTONIX PO SCH (09:46)
[2017-03-26] MEDS: HCTZ PO SCH (09:47)
--- NOTE | 2017-03-26 10:42 | Progress Note ---
Assessment and Plan POD # 6 Pt feeling well. terri diet Abd soft. incision clean & dry renal status much improved. creatinine down to 1.1 from 1.9 was consider d/c today but still uncontrolled HTN 140/100 surgically stable low Na diet. d/c IVF keep hep lock d/c in am if BP under better control and cleared by med Selected Entries 03/25/17 03/25/17 03/26/17 20:32 23:31 08:01 Temperature 98.3 F Blood Pressure 154/99 146/95 140/100 Laboratory Tests 03/26/17 03/26/17 06:15 08:01 WBC 4.2 L Hgb 17.1 H Hct 53.3 H POC Glucose 164 H Laboratory Tests 03/22/17 03/23/17 03/25/17 09:47 06:28 10:56 Creatinine 1.7 H 1.6 H 1.1 Objective Vital Signs - 12hr 03/25/17 03/25/17 03/26/17 23:00 23:31 05:04 Temperature 97.6 F 98.2 F Pulse Rate 72 72 71 Respiratory 18 18 18 Rate Blood Pressure 146/95 139/94 O2 Sat by Pulse 100 97 96 Oximetry 03/26/17 08:01 Temperature 98.3 F Pulse Rate Respiratory 18 Rate Blood Pressure 140/100 O2 Sat by Pulse Oximetry - Labs 03/26/17 06:15 03/25/17 10:56 Diabetes panel 03/25/17 Range/Units 10:56 Sodium 137 (137-145) mmol/L Potassium 4.2 (3.6-5.0) mmol/L Chloride 97.9 L (98-107) mmol/L Carbon Dioxide 28 (22-30) mmol/L BUN 22 H (9-20) mg/dL Creatinine 1.1 (0.8-1.5) mg/dL Glucose 147 H (75-100) mg/dL Calcium 8.7 (8.4-10.2) mg/dL Calcium panel 03/25/17 Range/Units 10:56 Calcium 8.7 (8.4-10.2) mg/dL Pituitary panel 03/25/17 Range/Units 10:56 Sodium 137 (137-145) mmol/L Potassium 4.2 (3.6-5.0) mmol/L Chloride 97.9 L (98-107) mmol/L Carbon Dioxide 28 (22-30) mmol/L BUN 22 H (9-20) mg/dL Creatinine 1.1 (0.8-1.5) mg/dL Glucose 147 H (75-100) mg/dL Calcium 8.7 (8.4-10.2) mg/dL Adrenal panel 03/25/17 Range/Units 10:56 Sodium 137 (137-145) mmol/L Potassium 4.2 (3.6-5.0) mmol/L Chloride 97.9 L (98-107) mmol/L Carbon Dioxide 28 (22-30) mmol/L BUN 22 H (9-20) mg/dL Creatinine 1.1 (0.8-1.5) mg/dL Glucose 147 H (75-100) mg/dL Calcium 8.7 (8.4-10.2) mg/dL
[2017-03-26] MEDS ORDERED: LOVENOX SUB-Q SCH (12:00)
--- NOTE | 2017-03-26 13:05 | Hem/Onc Progress Note ---
Assessment and Plan pt's hemoglobin is slowly coming down. Continue to monitor. Upon discharge, I will see him in my office. Patient has my office information. Patient will not take any more hormonal supplements which is driving his hemoglobin up Subjective Date of service: 03/26/17 Interval history: Patient better today. Complains of some lower extremity numbness. Tolerating by mouth Objective - Constitutional Vitals: Last Vital Signs Temp 98.3 F 03/26/17 08:01 Pulse 71 03/26/17 05:04 Resp 18 03/26/17 08:01 BP 140/100 03/26/17 08:01 Pulse Ox 96 03/26/17 05:04 General appearance: no acute distress Performance status: 2- selfcare, ambulatory - Neck Neck: supple - Respiratory Respiratory effort: Positive: normal - Cardiovascular Rhythm: regular Extremities: No edema - Gastrointestinal General gastrointestinal: Present: soft - Labs Lab Results: Laboratory Results - last 24 hr 03/25/17 03/25/17 03/25/17 12:02 17:10 22:00 WBC RBC Hgb Hct MCV MCH MCHC RDW Plt Count Lymph % (Auto) [place] % (Auto) Eos % (Auto) Baso % (Auto) Lymph # [place] # Eos # Baso # Seg Neutrophils % Seg Neutrophils # POC Glucose 137 H 175 H 172 H 03/26/17 03/26/17 06:15 08:01 WBC 4.2 L RBC 6.13 H Hgb 17.1 H Hct 53.3 H MCV 87 MCH 28 MCHC 32 RDW 15.8 H Plt Count 131 L Lymph % (Auto) 22.0 [place] % (Auto) 12.5 H Eos % (Auto) 6.5 H Baso % (Auto) 0.9 Lymph # 0.9 L [place]an # 0.5 Eos # 0.3 Baso # 0.0 Seg Neutrophils % 58.1 Seg Neutrophils # 2.4 POC Glucose 164 H
--- NOTE | 2017-03-26 15:32 | Progress Note ---
Assessment and Plan Acute Renal failure possible due to ATN/pre renal: Chronic kidney disease stage 3-4: -No recent BL Cr available, last Cr in Nov 2016 was 1.7. Likely pre renal ARF -Likely has CKD from DM/HTN -Holding lisinopril for now -BMP pending today. On D5NS at 75 cc/hr. -Renally dose all meds and avoid nephrotoxic meds -Renal US -ve for hydronephrosis, shows chronicity. Hyperkalemia: -Resolved. -Low K diet. Hypernatremia, hypertonic: -Improved. s/p Hernia repair: -GS on board, per them Diabetes mellitus type 2 on insulin: -On ISS -Per primary Essential Hypertension: -Avoid Gene inh/ARB for now -Titrate home med to keep SBP <130 Hyperlipidemia, chronic: -Statin -Target LDL <70 Plan d/w Family at bedside. Pt says he would like to f/u with [facility] on discharge since it is closer to his home. Stanislav Ruff MD Nephrology, Hypertension, Dialysis, Transplantation Phone no: [phone] Subjective Date of service: 03/26/17 Interval history: Denies CP/SHOB. Making good urine. Objective - Exam Narrative Exam: GE: AAOX3 HEENT: PERRLA Neck: Supple Chest: CTAB CVS: RRR Abd: BS+ Ext: No cce Psyche: Appropriate mood - Vital Signs Vital signs: Vital Signs - 12hr 03/26/17 03/26/17 03/26/17 05:04 08:01 13:00 Temperature 98.2 F 98.3 F 98.6 F Pulse Rate 71 78 Respiratory 18 18 20 Rate Blood Pressure 139/94 140/100 Blood Pressure 138/81 [Right] O2 Sat by Pulse 96 98 Oximetry - Lab 03/26/17 06:15 03/25/17 10:56 Most recent lab results Calcium 8.7 mg/dL (8.4-10.2) 03/25/17 10:56 Urine Creatinine 62.3 mg/dL (0.1-20.0) H 03/21/17 19:30 Urine Sodium 91 mmol/L 03/21/17 19:30
[2017-03-26 16:16] LABS: Anion Gap 16 mmol/L; BUN/Creatinine Ratio 17; Blood Urea Nitrogen 19 mg/dL (9-20); Calcium 8.9 mg/dL (8.4-10.2); Carbon Dioxide 31 mmol/L (22-30); Chloride 96.2 mmol/L (98-107); Glucose 233 mg/dL (75-100); Sodium 138 mmol/L (137-145)
--- NOTE | 2017-03-26 22:05 | Progress Note ---
Assessment and Plan /Hypoglycemia Pt was NPO since admission, changed iv fluid to D5ns hold long acting insulin cont to advance diet, now resolved /Acute on chronic kidney disease. Cr was 3.0 on admission He has not been to [place] [facility] in more than 1 year. Baseline unknown, Renal US ordered Nephrology following , renal function improved /Hyperkalemia Secondary to renal failure Hyperkalemia improved from 7.6 s/p Kayexalate 30 g rectal, Insulin iv and d50 /Hypertensive urgency restartED home meds Closely monitor blood pressure, PRN hydralazine as needed DBP still elevated, stop iv fluid and cont to monitor /Diabetes mellitus type 2.Uncontrolled on admission Accu-Chek qachs, cont on ADA diet Sliding-scale insulin/NovoLog, hold long acting for now /S/P Left hernia repair Managed by Surgeon, Dr. Amin and I discussed with him. cont to advance diet as tolerated /Hypernatermia improved with IV fluid hydration Closely monitor electrolytes /Medical noncompliance. he has h/o CKD but has not gone to [facility] in more than 1 year. Full code status. Dvt Px Scd brief Hospital course: Patient is a 56 years old male with past medical history of hypertension, diabetes mellitus, chronic renal failure, hyperlipidemia , who was consulted form general surgery to us for medical management of hypertension and diabetes mellitus. Patient has had hernia repair ; this procedure occurred on 03/20/2017. Hospitalist Physical GEN APPEARANCE : Not in acute distress, HEENT: Normocephalic Atraumatic NECK : supple, no JVD LUNGS: Clear, no wheeze HEART: S1 and S2 regular, no murmurs, rubs or gallop, ABD: Soft, no tenderness, no distension, normal bowel sounds, surgical suture on place EXT: No edema, no clubbing, no cyanosis NEURO: Awake,alert,oriented x 3. No focal signs Psych:Normal mood Subjective Date of service: 03/26/17 Interval history: Patient had hernia repair, no abdominal pain, no chest pain tolerating diet, HAD bm TODAY Objective - Constitutional Vitals: Vital Signs - 12hr 03/26/17 03/26/17 03/26/17 13:00 15:34 20:22 Temperature 98.6 F 97.6 F Pulse Rate 78 77 82 Respiratory 20 20 Rate Blood Pressure 147/96 135/97 Blood Pressure 138/81 [Right] O2 Sat by Pulse 98 96 92 Oximetry - Labs CBC & Chem 7: 03/27/17 06:28 03/26/17 14:55 Labs: Abnormal lab results 03/25/17 03/26/17 03/26/17 Range/Units 22:00 06:15 08:01 WBC 4.2 L (4.5-11.0) K/mm3 RBC 6.13 H (3.65-5.03) M/mm3 Hgb 17.1 H (11.8-15.2) gm/dl Hct 53.3 H (35.5-45.6) % RDW 15.8 H (13.2-15.2) % Plt Count 131 L (140-440) K/mm3 [place] % (Auto) 12.5 H (0.0-7.3) % Eos % (Auto) 6.5 H (0.0-4.3) % Lymph # 0.9 L (1.2-5.4) K/mm3 Chloride (98-107) mmol/L Carbon Dioxide (22-30) mmol/L Glucose (75-100) mg/dL POC Glucose 172 H 164 H (70-105) 03/26/17 03/26/17 03/26/17 Range/Units 11:50 14:55 15:36 WBC (4.5-11.0) K/mm3 RBC (3.65-5.03) M/mm3 Hgb (11.8-15.2) gm/dl Hct (35.5-45.6) % RDW (13.2-15.2) % Plt Count (140-440) K/mm3 [place] % (Auto) (0.0-7.3) % Eos % (Auto) (0.0-4.3) % Lymph # (1.2-5.4) K/mm3 Chloride 96.2 L (98-107) mmol/L Carbon Dioxide 31 H (22-30) mmol/L Glucose 233 H (75-100) mg/dL POC Glucose 132 H 224 H (70-105) 03/26/17 Range/Units 21:28 WBC (4.5-11.0) K/mm3 RBC (3.65-5.03) M/mm3 Hgb (11.8-15.2) gm/dl Hct (35.5-45.6) % RDW (13.2-15.2) % Plt Count (140-440) K/mm3 [place] % (Auto) (0.0-7.3) % Eos % (Auto) (0.0-4.3) % Lymph # (1.2-5.4) K/mm3 Chloride (98-107) mmol/L Carbon Dioxide (22-30) mmol/L Glucose (75-100) mg/dL POC Glucose 188 H (70-105)
[2017-03-26] MEDS: MORPHINE IV PRN (22:41)
[2017-03-27 06:49] LABS: Basophils % (Auto) 0.8 % (0.0-1.8); Eosinophils % (Auto) 6.3 % (0.0-4.3); Hematocrit 55.2 % (35.5-45.6); Hemoglobin 17.7 gm/dl (11.8-15.2); Mean Corpuscular HGB Conc 32 % (32-34); Mean Corpuscular Hemoglobin 28 pg (28-32); Mean Corpuscular Volume 87 fl (84-94); Platelet Count 126 K/mm3 (140-440); Red Blood Count 6.31 M/mm3 (3.65-5.03); Red Cell Distribution Width 16.2 % (13.2-15.2); White Blood Count 4.8 K/mm3 (4.5-11.0)
[2017-03-27 07:16] VITALS: BP 116/78
--- NOTE | 2017-03-27 07:28 | Vascular Lab Report ---
LOWER EXTREMITY VENOUS DUPLEX: REASON FOR EXAM: Pain of the lower extremities. COMMENTS ON THE RIGHT: All veins visualized are freely compressible without evidence of internal echogenicity. Flow is spontaneous and phasic throughout. COMMENTS ON THE LEFT: All veins visualized are freely compressible without evidence of internal echogenicity. Flow is spontaneous and phasic throughout. IMPRESSION: No evidence of acute or chronic deep venous thrombosis in either lower extremity.
[2017-03-27] MEDS: NOVOLOG SUB-Q SCH ×2 (09:00→13:32)
--- NOTE | 2017-03-27 10:15 | Progress Note ---
Assessment and Plan Pt feeling well. no compl. terri diet Abd soft, non tender BP under control surgically stable may d/c from surgical perspective rto next Fri continue wearing abd binder x 2 more weekks. no lifting over 5 lbs Selected Entries 03/27/17 05:45 Temperature 97.9 F Pulse Rate 74 Respiratory 20 Rate Blood Pressure 116/78 [Right] Laboratory Tests 03/27/17 06:28 WBC 4.8 Hgb 17.7 H Hct 55.2 H Objective Vital Signs - 12hr 03/26/17 03/26/17 03/27/17 23:15 23:55 00:37 Temperature 97.9 F Pulse Rate 78 78 Respiratory 20 22 Rate Blood Pressure 123/80 Blood Pressure [Right] O2 Sat by Pulse 98 98 Oximetry 03/27/17 05:45 Temperature 97.9 F Pulse Rate 74 Respiratory 20 Rate Blood Pressure Blood Pressure 116/78 [Right] O2 Sat by Pulse 98 Oximetry - Labs 03/27/17 06:28 03/26/17 14:55 Diabetes panel 03/26/17 Range/Units 14:55 Sodium 138 (137-145) mmol/L Potassium 5.0 (3.6-5.0) mmol/L Chloride 96.2 L (98-107) mmol/L Carbon Dioxide 31 H (22-30) mmol/L BUN 19 (9-20) mg/dL Creatinine 1.1 (0.8-1.5) mg/dL Glucose 233 H (75-100) mg/dL Calcium 8.9 (8.4-10.2) mg/dL Calcium panel 03/26/17 Range/Units 14:55 Calcium 8.9 (8.4-10.2) mg/dL Pituitary panel 03/26/17 Range/Units 14:55 Sodium 138 (137-145) mmol/L Potassium 5.0 (3.6-5.0) mmol/L Chloride 96.2 L (98-107) mmol/L Carbon Dioxide 31 H (22-30) mmol/L BUN 19 (9-20) mg/dL Creatinine 1.1 (0.8-1.5) mg/dL Glucose 233 H (75-100) mg/dL Calcium 8.9 (8.4-10.2) mg/dL Adrenal panel 03/26/17 Range/Units 14:55 Sodium 138 (137-145) mmol/L Potassium 5.0 (3.6-5.0) mmol/L Chloride 96.2 L (98-107) mmol/L Carbon Dioxide 31 H (22-30) mmol/L BUN 19 (9-20) mg/dL Creatinine 1.1 (0.8-1.5) mg/dL Glucose 233 H (75-100) mg/dL Calcium 8.9 (8.4-10.2) mg/dL
[2017-03-27] MEDS: PROTONIX PO SCH (10:58)
[2017-03-27] MEDS: HCTZ PO SCH (10:58)
[2017-03-27] MEDS: HEPARIN SUB-Q SCH (10:58)
[2017-03-27] MEDS: LYRICA PO SCH (11:04)
--- NOTE | 2017-03-27 12:22 | Discharge Summary ---
Providers - Providers Date of Admission: 03/20/17 11:12 Date of discharge: 03/27/17 Attending physician: JOSUE AMIN 03/20/17 11:11 Consult to Physician [CONS] Routine Consulting Provider: CHANA LOAIZA Reason For Exam: DM , HTN Place consult to:: cell phone Notified:: yes Phone number called:: [phone] 03/21/17 10:44 Consult to Physician [CONS] Routine Consulting Provider: TED MANSFIELD Reason For Exam: acute on CKD,hyperkalemia Place consult to:: cellphone Notified:: yes 03/22/17 11:31 Consult to Physician [CONS] Routine Consulting Provider: ZOYA GIRALDO Reason For Exam: high h/h r/o polycythemia? Place consult to:: Dr. Giraldo Notified:: Ricki SEGURA Phone number called:: Was contact made?: Yes If yes, spoke with:: Luis Enrique-office Time called:: 13:29 03/24/17 11:42 Physical Therapy Evaluation and Treat [CONS] Routine Comment: Reason For Exam: d/c clearance 03/24/17 11:44 Physical Therapy Evaluation and Treat [CONS] Stat Comment: Reason For Exam: Patient needs to walk the [address] way 03/24/17 12:03 Physical Therapy Evaluation and Treat [CONS] Routine Comment: Reason For Exam: ambulate down halls with assistance as terri 03/26/17 11:03 Midline [Consult to PICC Line RN] [CONS] Routine Reason For Exam: difficult to stick Type Line:: Midline Primary care physician: ILLUSTRATOR SET Hospitalization Pertinent studies: CXR Abdomen XRY Renal US Duplex scan LE - No sign of DVT Hospital course: Patient is a 56 years old male with past medical history of hypertension, diabetes mellitus, chronic renal failure, hyperlipidemia , who was consulted form general surgery to us for medical management of hypertension and diabetes mellitus. Patient has had hernia repair; this procedure occurred on 03/20/2017. Discharge diagnosis and management: /S/P Left hernia repair Managed by Surgeon, Dr. Amin and I discussed with him. cont to advance diet as tolerated /Hypoglycemia Pt was NPO since admission, changed iv fluid to D5ns held long acting insulin cont to advance diet, now resolved /Acute on chronic kidney disease. likely due to vasomotor nephropathy Cr was 3.0 on admission He has not been to [facility] in more than 1 year. Baseline unknown, Renal US ordered showed nonspecific echogenic kidneys Nephrology consulted , renal function improved /Hyperkalemia Secondary to renal failure Hyperkalemia improved from 7.6 s/p Kayexalate 30 g rectal, Insulin iv and d50 /Hypertensive urgency restarted home meds Closely monitor blood pressure, PRN hydralazine as needed DBP was still elevated, stopped iv fluid and BP improved /Diabetes mellitus type 2.Uncontrolled on admission Placed on Accu-Chek qachs, cont on ADA diet Sliding-scale insulin/NovoLog, held long acting for hypoglycemic event /Hypernatermia improved with IV fluid hydration Closely monitored electrolytes /Medical noncompliance. he has h/o CKD but has not gone to [facility] in more than 1 year. Full code status. Dvt Px Scd Disposition: DC/TX-06 HOME UNDER HOME HL Time spent for discharge: 32 minutes Core Measure Documentation - Palliative Care Palliative Care/ Comfort Measures: Not Applicable - Core Measures Any of the following diagnoses?: none Exam - Physical Exam Narrative exam: GEN APPEARANCE : Not in acute distress, HEENT: Normocephalic Atraumatic NECK : supple, no JVD LUNGS: Clear, no wheeze HEART: S1 and S2 regular, no murmurs, rubs or gallop, ABD: Soft, no tenderness, no distension, normal bowel sounds, surgical incision with healing and without any discharge EXT: No edema, no clubbing, no cyanosis NEURO: Awake,alert,oriented x 3. No focal signs Psych:Normal mood - Constitutional Vitals: Temp Pulse Resp BP Pulse Ox 97.9 F 74 20 116/78 98 03/27/17 05:45 03/27/17 05:45 03/27/17 05:45 03/27/17 05:45 03/27/17 05:45 Plan Activity: advance as tolerated Weight Bearing Status: Non-Weight Bearing Diet: diabetic, renal Wound: per your surgeon's advice Additional Instructions: F/u with [facility] in next two weeks. Advised to follow-up with supervisor painting shipyard at [place] office in 14 days of discharge Follow up with: PRIMARY CARE, [Primary Care Provider] - 7 Days Prescriptions: HYDROcodone/APAP 5-325 [[place] 5-325 mg TAB] 1 - 2 each PO Q4HR PRN #20 tablet PRN Reason: Pain
--- NOTE | 2017-03-27 13:25 | Progress Note ---
Assessment and Plan - Patient Problems (1) Acute renal failure superimposed on stage 3 chronic kidney disease Current Visit: Yes Status: Acute Plan to address problem: Renal function reviewed. Serum creatinine normalized to 1.1 today. Avoid Nephrotoxic agents Renally dose medications Renal diet Monitor I/O's Possible discharging home today Advised to follow-up with us at [facility] in 14 days of discharge (2) Hypertension Current Visit: Yes Status: Acute Plan to address problem: Blood pressures are stable (3) Diabetes mellitus Current Visit: Yes Status: Acute Plan to address problem: On insulin as per Attending (4) Hernia Current Visit: Yes Status: Acute Plan to address problem: S/P Left hernia repair Managed by Surgeon, Dr. Amin Subjective Date of service: 03/27/17 Principal diagnosis: ARF Interval history: Patient seen lying in bed with friend at bedside. Objective - Vital Signs Vital signs: Vital Signs - 12hr 03/27/17 05:45 Temperature 97.9 F Pulse Rate 74 Respiratory 20 Rate Blood Pressure 116/78 [Right] O2 Sat by Pulse 98 Oximetry - General Appearance General appearance: well-developed, appears stated age EENT: ATNC, PERRL, hearing intact, vision intact Neck: no JVD, supple Respiratory: Present: Decreased Breath Sounds Cardiology: regular, S1S2 Gastrointestinal: normoactive bowel sounds, other (surgical incision intact) Integumentary: warm and dry Neurologic: alert and oriented x3 Musculoskeletal: no deformities, no erythema, no cyanosis, no clubbing Psychiatric: cooperative - Lab 03/27/17 06:28 03/26/17 14:55 Most recent lab results Calcium 8.9 mg/dL (8.4-10.2) 03/26/17 14:55 Urine Creatinine 62.3 mg/dL (0.1-20.0) H 03/21/17 19:30 Urine Sodium 91 mmol/L 03/21/17 19:30
[2017-03-27] MEDS: MORPHINE IV PRN (13:33)
== END 2017-03-27 18:25 | disposition home health service (06) | DRG 353 ==
LOC: OR 06:55 → 3B-SURG 11:12 → 4A 03-21 15:36
PROVIDERS: ADMIT Surgery; ATTEND Surgery
PROC: 0WUF0JZ Supplement Abdominal Wall with Synthetic Substitute, Open Approach (ICD-10-PCS; principal; 2017-03-20)
PROC: 5A09557 Assistance with Respiratory Ventilation, Greater than 96 Consecutive Hours, Continuous Positive Airway Pressure (ICD-10-PCS; 2017-03-21)
DX: K43.9 Ventral hernia without obstruction or gangrene (principal); N17.0 Acute kidney failure with tubular necrosis; E87.1 Hypo-osmolality and hyponatremia; E87.0 Hyperosmolality and hypernatremia; N18.4 Chronic kidney disease, stage 4 (severe); K56.7 Ileus, unspecified; I16.0 Hypertensive urgency; E11.649 Type 2 diabetes mellitus with hypoglycemia without coma; E87.5 Hyperkalemia; I12.9 Hypertensive chronic kidney disease with stage 1 through stage 4 chronic kidney disease, or unspecified chronic kidney disease; G47.30 Sleep apnea, unspecified; E11.40 Type 2 diabetes mellitus with diabetic neuropathy, unspecified; D75.1 Secondary polycythemia; E86.0 Dehydration; E78.5 Hyperlipidemia, unspecified; E11.22 Type 2 diabetes mellitus with diabetic chronic kidney disease; Z91.14 Patient's other noncompliance with medication regimen; Z82.49 Family history of ischemic heart disease and other diseases of the circulatory system; Z83.3 Family history of diabetes mellitus; Z79.82 Long term (current) use of aspirin; Z79.4 Long term (current) use of insulin; Z79.899 Other long term (current) drug therapy; Z87.891 Personal history of nicotine dependence; Z72.89 Other problems related to lifestyle
CPT/HCPCS: 36415; 71010; 74000; 74022; 76770; 80048; 81001; 82550; 82570; 82668; 82962; 83880; 84300; 84520; 85025; 85027; 89050; 93005; 93010; 93970; 94640; 94660; A9270-GY; C1781; G8978-GP; G8979-GP; G8980-GP; J0610; J0690; J1100; J1170; J1644; J1815; J1818; J1940; J2250; J2270; J2370; J2405; J2704; J2710; J7030; J7042